=== PATIENT | female | born 1955 | race Caucasian/White ===

== ENCOUNTER 2020-10-04 11:32 | Outpatient (REF) | payer SELFPAY ==
--- NOTE | ~2020-10-04 | MM_ITS ---
EXAMINATION: MM SCREENING DIGITAL BREAST TOMOSYNTHESIS, BILATERAL CLINICAL INFORMATION: Screening. Asymptomatic. The lifetime risk of breast cancer based on the Tyrer-Cuzick Model is 4%. COMPARISON: Mammography: 03/25/2019, 02/07/2018, 08/30/2016, 06/10/2015, 04/01/2014 TECHNIQUE: Digital breast tomosynthesis is performed in both the craniocaudal and mediolateral oblique views along with computer-aided detection (CAD). Synthesized 2D images are generated from the tomosynthesis. FINDINGS: There are scattered areas of fibroglandular density (ACR BI-RADS breast composition Category b). There are no significant masses, abnormal calcifications, or other abnormalities. Parenchymal pattern is similar to prior studies. Low bilateral axillary tail nodes stable. Vascular calcifications again seen. Skin contours are smooth. No significant changes. MM/MM tomosynthesis screening BI IMPRESSION: No significant changes from prior studies. ASSESSMENT: BI-RADS 2: Benign RECOMMENDATION: Routine annual mammography screening. This patient's information was entered into a reminder system with a target due date for their next mammogram.
== END 2020-10-04 11:33 | disposition home or self-care (01) ==
LOC: HO.MAMMO 11:32
PROVIDERS: PCP Nurse Practitioner Family; Visit Provider Nurse Practitioner Family
DX: Z12.31 Encounter for screening mammogram for malignant neoplasm of breast (principal)
CPT/HCPCS: 77063; 77067

== ENCOUNTER 2021-01-07 16:44 | Emergency (ER) | payer OTHER, SELFPAY ==
[2021-01-07 17:57] VITALS: BP 132/65; PULSE 65; RESP 12; TEMP 37; O2SAT 98; BMI 26.5
--- NOTE | 2021-01-07 18:38 | ED_ITS ---
HPI - Skin/Abscess/Foreign Bdy General Chief complaint: General Medical Stated complaint: rash Time Seen by Provider: 01/07/21 18:32 Source: patient Mode of arrival: ambulatory Limitations: language barrier (Maltese-speaking) History of Present Illness MD complaint: rash Onset (ago): day(s) (Nine days) Location: LUE, RUE, L hand, R hand, LLE, RLE, L foot and R foot Severity: moderate Quality: pruritic and other (Pins and needles) Pain Consistency: constant Relieving factors: none Exacerbating factors: other (Nighttime) Context: other (Had COVID vaccine and developed a rash after the 2nd dose and also started metformin on 12/20/2020) Associated symptoms: denies other symptoms Treatments prior to arrival: OTC topical medication (Hydrocortisone) Related Data Previous Rx's Medication Instructions Recorded diphenhydramine HCl [Benadryl 50 mg PO TID PRN #10 tab 01/07/21 Allergy] permethrin 1 appl TOPICAL Q14D #60 g 01/07/21 Allergies Allergy/AdvReac Type Severity Reaction Status Date / Time No Known Allergies Allergy Unverified 04/22/20 17:05 Review of Systems Review of Systems: Constitutional : No Fever, No Chills , no body aches, no recent illness Head/Face: No facial swelling, No facial redness ENT/Mouth : No oral/throat swelling, No Hoarseness, No Swallowing Difficulty Eyes: No Eye Pain, No Swelling, No Redness Cardiovascular : No Chest Pain, No SOB, No palpitations Respiratory : No Cough, No Sputum, No Wheezing, No Smoke Exposure, No Dyspnea Gastrointestinal : No Nausea, No Vomiting, No Diarrhea, No abdominal Pain Genitourinary : No Dysuria, No Urinary Frequency, No Hematuria Musculoskeletal : No joint pain, No Myalgias, No Joint Swelling Skin : No Skin Lesions, positive rash Neuro : No Weakness, No Numbness, No Headache, No dizziness, No tingling Psych : No Anxiety/Panic, No Depression Heme/Lymph: No Bruising, No Lymphadenopathy Endocrine : No Polyuria, No Polydipsia Denies changes in lotions or detergents. Denies drainage from rash. Denies any recent sick contacts or recent travel. Admits to COVID vaccine and metformin that is new on 12/20/2020 otherwise no other new medications or changes in medications PMFSH Past Medical History Attestation statement: The following information was validated with the patient. Medical History Pre-diabetes Social History Social History Advance Directives: No Advance Directives Information Provided: No Physical Exam Vital Signs: Vital Signs: Last Vital Signs Temp 98.6 F 01/07/21 17:57 Pulse 65 01/07/21 17:57 Resp 12 01/07/21 17:57 BP 132/65 01/07/21 17:57 Pulse Ox 98 01/07/21 17:57 Body Mass Index 26.5 vital signs have been reviewed as normal and appeared to be correct. Blood pressure normal. Heart rate normal. Respiration rate normal. Temperature normal. Oxygen saturation normal. Appearance: Alert. Oriented X3. No acute distress. Head: Normal external exam. Normocephalic. Eyes: PERRLA. EOMI. Conjunctiva and sclera normal. Eyelids normal. ENT: Pharynx normal. Uvula midline. Moist mucous membranes. No trismus noted. No drooling noted. No muffled voice noted. Neck: Normal inspection. Neck supple. FROM. No adenopathy. No meningeal signs. CVS: Normal heart rate and rhythm. Heart sound normal. No murmurs noted. Pulses normal throughout. Respiratory: No respiratory distress. Painless inspiration. Breath sounds normal. No wheezes/rales/rhonchi noted. Chest nontender. No accessory muscle usage noted or decreased air movement noted. Back: Full range of motion noted. Skin: Skin warm and dry. Normal skin color. Normal skin turgor. To hands dorsal aspect mainly at the web spaces patient has pruritic macular papular lesions with burrows going up bilateral upper extremities and to lower extremities as well. No lesions/lacerations noted. Extremities: Extremities exhibit normal range of motion. Extremities nontender. Neuro: Oriented X 3. No motor deficit. No sensory deficit. Reflexes normal. Normal steady gait. Course Course Course Narrative: 65-year-old female with rash to bilateral hands going up to the bilateral arms along with bilateral feet going up to bilateral legs that started at the web spaces x9 days. She reports she had the COVID vaccine and after the 2nd toe she believes she developed a rash. Also started on metformin on 12/20/2020 denies any other new medications or changes in medication any lotions perfumes or any other new sources. Reports that no one at the home has similar rash. Reports no visitors and she has not been going out much. On exam patient appears to have scabies. Will DC home with treatment instructions to return if any new or worsening symptoms to follow up with primary care provider. Patient understands agrees with this plan. MDM - Skin/Abscess/Foreign Bdy Medical Records Attestation: I reviewed the patient's medical records. Discharge Plan Discharge Clinical Impression: Scabies Patient Disposition: Home, Self-Care Instructions: Scabies (ED) Prescriptions: New permethrin 5 % cream 1 appl topical Q14D Qty: 60 RF: 2 diphenhydramine HCl [Benadryl Allergy] 25 mg tablet 50 mg PO TID PRN (Reason: itching) Qty: 10 RF: 0 Referrals: [facility] [Primary Care Provider] - 2 days Print Language: Maltese
== END 2021-01-07 19:09 | disposition home or self-care (01) ==
PROVIDERS: Emergency Provider Emergency Medicine
DX: B86 Scabies (principal); R73.03 Prediabetes
CPT/HCPCS: 99283

== ENCOUNTER 2022-04-17 12:10 | Outpatient (REF) | payer OTHER, SELFPAY ==
--- NOTE | ~2022-04-17 | XR_ITS ---
EXAMINATION: XR thoracic spine 3V CLINICAL INFORMATION: Reason for Exam DORSALGIA COMPARISON: None TECHNIQUE: 3 views of the thoracic spine FINDINGS: Vertebral body heights are maintained. Alignment is maintained. Mild multilevel degenerative disc disease with multilevel loss of disc space height. Paravertebral soft tissues are unremarkable. XR/XR thoracic spine 3V IMPRESSION: Mild multilevel degenerative disc disease.
--- NOTE | ~2022-04-17 | XR_ITS ---
EXAMINATION: XR lumbar spine 4V min CLINICAL INFORMATION: Reason for Exam LOW BACK PAIN COMPARISON: None TECHNIQUE: 5 views of the lumbar spine FINDINGS: 5 nonrib-bearing lumbar-type vertebral bodies. Vertebral body heights are maintained. Alignment is maintained. Lucency over the right L3 pars, unclear if this could reflect a pars defect or overlying bowel gas. Mild degenerative changes at L5-S1 with borderline loss of disc space height and facet arthropathy. Paravertebral soft tissues are unremarkable. XR/XR lumbar spine 4V min IMPRESSION: * Mild spondylosis of the lumbar spine, as above detailed. * Lucency over the right L3 pars, unclear if this could reflect a pars defect or overlying bowel gas. CT lumbar spine could be confirmatory if warranted clinically.
== END 2022-04-17 12:11 | disposition home or self-care (01) ==
LOC: HO.XRAY 12:10
PROVIDERS: Absent Provider Registered Nurse; PCP Registered Nurse; Visit Provider Emergency Medicine
DX: M54.50 Low back pain, unspecified (principal); M54.9 Dorsalgia, unspecified
CPT/HCPCS: 72072; 72110

== ENCOUNTER 2022-09-07 11:49 | Emergency (ER) | payer OTHER, SELFPAY ==
--- NOTE | ~2022-09-07 | XR_ITS ---
EXAMINATION: XR CHEST CLINICAL INFORMATION: Cough and fever COMPARISON: 12/12/2016 TECHNIQUE: 2 views of the chest were obtained. FINDINGS: No significant abnormality is noted involving the heart, lungs, mediastinum, bony thorax or soft tissues. XR/XR chest 2V IMPRESSION: Unremarkable examination.
--- NOTE | 2022-09-07 12:47 | ED_ITS ---
HPI - Fever General Chief Complaint: Upper Respiratory Symptoms <LEESA Humphreys Last Filed: 09/07/22 12:49> Stated Complaint: Fever <LEESA Humphreys Last Filed: 09/07/22 12:49> Time Seen by Provider: 09/07/22 14:19 <LEESA Humphreys Last Filed: 09/07/22 12:49> History of Present Illness HPI Narrative: patient complains of feeling warm and possibly feverish for the last several days, she has had a stuffy nose and a cough productive of sputum and the cough is worse neck, no chest pain no shortness of breath, she did have some nausea earlier but today she is not nauseous or vomiting no diarrhea no dysuria no sore throat no difficulty swallowing no difficulty breathing She does not have much appetite but has been able to drink liquids <LEESA Maza Last Filed: 09/20/22 11:57> Related Data Home Medications: Previous Rx's Medication Instructions Recorded diphenhydramine HCl 25 mg tablet 50 mg PO TID PRN itching #10 tabs 01/07/21 (Benadryl Allergy) permethrin 5 % topical cream 1 appl topical Q14D scabies 2 01/07/21 doses #60 grams doxycycline hyclate 100 mg tablet 100 mg PO BID 5 days #10 tabs 09/07/22 <LEESA Humphreys Last Filed: 09/07/22 12:49> Allergies/Adverse Reactions: Allergies Allergy/AdvReac Type Severity Reaction Status Date / Time No Known Allergies Allergy Unverified 04/22/20 17:05 <LEESA Humphreys Last Filed: 09/07/22 12:49> [facility] Past Medical History Source: nursing notes reviewed <LEESA Maza - Last Filed: 09/20/22 11:57> Medical History: Medical History Pre-diabetes <LEESA Humphreys Last Filed: 09/07/22 12:49> Social History Social History: Social History Advance Directives: No <LEESA Humphreys Last Filed: 09/07/22 12:49> Physical Exam Vital Signs: Vital Signs: Last Vital Signs Temp 98.6 F 09/07/22 14:37 Pulse 70 09/07/22 14:37 Resp 18 09/07/22 14:37 BP 134/63 09/07/22 14:37 Pulse Ox 98 09/07/22 14:37 O2 Del Method 09/07/22 14:37 BMI result Body Mass Index 27.0 <LEESA Humphreys - Last Filed: 09/07/22 12:49> Vital Signs: Last Vital Signs Temp 98.6 F 09/07/22 14:37 Pulse 70 09/07/22 14:37 Resp 18 09/07/22 14:37 BP 134/63 09/07/22 14:37 Pulse Ox 98 09/07/22 14:37 O2 Del Method 09/07/22 14:37 BMI result Body Mass Index 27.0 <LEESA Maza - Last Filed: 09/20/22 11:57> Vital Signs: Last Vital Signs Temp 98.6 F 09/07/22 14:37 Pulse 70 09/07/22 14:37 Resp 18 09/07/22 14:37 BP 134/63 09/07/22 14:37 Pulse Ox 98 09/07/22 14:37 O2 Del Method 09/07/22 14:37 BMI result Body Mass Index 27.0 <Primitivo Hyde MD - Last Filed: 09/21/22 16:10> General appearance is no acute distress The eyes no redness no discharge anicteric no pallor The nose no congestion or sinus tenderness The pharynx is clear no redness swelling or exudate, mucous membranes moist Neck is supple Chest clear to auscultation with full symmetric equal breath sounds Heart no murmur Abdomen soft nontender Extremities full range of motion x4 no edema Skin no rash <LEESA Maza - Last Filed: 09/20/22 11:57> Course Course Course Narrative: RME - 67 yo Yi speaking female presenting to the ER for evaluation of intermittent subjective fevers, chills, and bone pain for the last 5 days. +Cough, +SOB, +nausea, +sore throat. No known sick contacts Nontoxic appearing, VSS. Will get CXR and viral PCR. <LEESA Humphreys - Last Filed: 09/07/22 12:49> RME - 67 yo Yi speaking female presenting to the ER for evaluation of intermittent subjective fevers, chills, and bone pain for the last 5 days. +Cough, +SOB, +nausea, +sore throat. No known sick contacts Nontoxic appearing, VSS. Will get CXR and viral PCR. Chest x-ray was normal, viral testing was negative for flu or COVID Physical exam was normal, well-appearing patient with worsening cough and fever is prescribed doxycycline antibiotic for 5 days for bronchitis and is discharged She is tolerating p.o. and is not nauseous or vomiting today <LEESA Maza - Last Filed: 09/20/22 11:57> Medical Decision Making Lab Data Labs: Lab Results 09/07/22 09/07/22 Range/Units 14:05 14:05 Influenza Type A (PCR) NEGATIVE (Negative) Influenza Type B (PCR) NEGATIVE (Negative) RSV RNA Qual (PCR) NEGATIVE (Negative) SARS-CoV-2 RNA (RT-PCR) NEGATIVE (Negative) S. pyogenes GrpA MAN Negative (Negative) <LEESA Humphreys - Last Filed: 09/07/22 12:49> Lab Results 09/07/22 09/07/22 Range/Units 14:05 14:05 Influenza Type A (PCR) NEGATIVE (Negative) Influenza Type B (PCR) NEGATIVE (Negative) RSV RNA Qual (PCR) NEGATIVE (Negative) SARS-CoV-2 RNA (RT-PCR) NEGATIVE (Negative) S. pyogenes GrpA MAN Negative (Negative) <LEESA Maza - Last Filed: 09/20/22 11:57> Lab Results 09/07/22 09/07/22 Range/Units 14:05 14:05 Influenza Type A (PCR) NEGATIVE (Negative) Influenza Type B (PCR) NEGATIVE (Negative) RSV RNA Qual (PCR) NEGATIVE (Negative) SARS-CoV-2 RNA (RT-PCR) NEGATIVE (Negative) S. pyogenes GrpA MAN Negative (Negative) <Primitivo Hyde MD - Last Filed: 09/21/22 16:10> Attestation Attending Attestation: I reviewed [employer] ASSESSMENT/PA/Resident note, assessment and plan. I agree with the d ocumentation, assessment and plan unless otherwise stated. <Primitivo Hyde MD - Last Filed: 09/21/22 16:10> Discharge Plan Discharge Clinical Impression: Bronchitis <LEESA Humphreys - Last Filed: 09/07/22 12:49> Patient Disposition: Home, Self-Care <LEESA Humphreys - Last Filed: 09/07/22 12:49> Additional Instructions: COVID test and flu test were negative, chest x-ray was normal We are prescribing doxycycline antibiotic for possible bronchitis Take doxycycline with some food, drink lots of water to swallow the pill Return any time for difficulty breathing vomiting any worse condition or any concerns It is a good idea to repeat the COVID test to confirm that it is negative <LEESA Humphreys - Last Filed: 09/07/22 12:49> Prescriptions: New doxycycline hyclate 100 mg tablet 100 mg PO BID 5 Days Qty: 10 0RF No Action permethrin 5 % cream 1 appl topical Q14D Qty: 60 2RF Rx Instructions: apply second treatment 14 days after first treatment if live lice remain diphenhydramine HCl [Benadryl Allergy] 25 mg tablet 50 mg PO TID PRN (Reason: itching) Qty: 10 0RF <LEESA Humphreys - Last Filed: 09/07/22 12:49> Stand Alone Forms: Work/School Release <LEESA Humphreys - Last Filed: 09/07/22 12:49> Interventions: ED Discharge Assessment Last Done: 09/07/22 15:59 <LEESA Humphreys - Last Filed: 09/07/22 12:49> Discharge Date/Time: 09/07/22 16:00 <LEESA Humphreys - Last Filed: 09/07/22 12:49>
[2022-09-07 12:49] VITALS: BP 153/66; PULSE 87; RESP 18; TEMP 37.2; O2SAT 97; BMI 27.0
[2022-09-07 14:34] LABS: IDNOW Serial# 6674DD1D; Strep A Nucleic Acid Negative (Negative)
[2022-09-07 14:37] VITALS: BP 134/63; PULSE 70; RESP 18; TEMP 37; O2SAT 98
[2022-09-07 14:56] LABS: Influenza A PCR NEGATIVE (Negative); Influenza B PCR NEGATIVE (Negative); Resp Syncy Virus RNA Qual PCR NEGATIVE (Negative); SARS COV2 PCR INHOUSE NEGATIVE (Negative)
== END 2022-09-07 16:00 | disposition home or self-care (01) ==
PROVIDERS: Physician Assistant; Emergency Provider Emergency Medicine
DX: J40 Bronchitis, not specified as acute or chronic (principal); R50.9 Fever, unspecified; Z20.822 Contact with and (suspected) exposure to COVID-19; Z20.828 Contact with and (suspected) exposure to other viral communicable diseases
CPT/HCPCS: 0241U; 36415; 71046; 87651; 99282; 99283

== ENCOUNTER 2022-10-16 19:22 | Emergency (ER) | payer OTHER, SELFPAY ==
--- NOTE | ~2022-10-16 | US_ITS ---
EXAMINATION: US VENOUS ULTRASOUND WITH DOPPLER LOWER EXTREMITY, RIGHT CLINICAL INFORMATION: Pain and swelling. COMPARISON: None TECHNIQUE: Ultrasound of the deep veins is performed from the hip to the calf with compression sonography and color and pulse Doppler assessment. Spectral analysis with color-flow imaging is performed. FINDINGS: There is thrombus visualized within proximal right greater saphenous vein extending to the saphenous femoral junction. The common femoral, superficial femoral, popliteal and posterior tibial veins are patent. There are several noncompressible varicose veins in the right thigh. If the patient's symptoms persist, followup ultrasound in 5 days 7 days might be of value to exclude proximal propagation from a non-visualized calf vein. US/US venous duplex LE RT IMPRESSION: Acute thrombus visualized within the right greater saphenous vein extending superiorly to the saphenous femoral venous junction.
[2022-10-16 19:30] VITALS: BP 136/43; BP 160/82; PULSE 71; PULSE 75; RESP 22; TEMP 37.2; O2SAT 97; O2SAT 99; BMI 26.2
[2022-10-16 20:12] LABS: MANUAL DIFF FLAG NO
[2022-10-16 20:13] LABS: Basophils Percent Auto 0.3 % (0-2); Eosinophils Absolute Auto 0.1 X10*3/uL (0.0-0.4); Eosinophils Percent Auto 2.1 % (0-4); Hematocrit 37.6 % (37.0-47.0); Hemoglobin 11.9 g/dl (12.0-16.0); Imm Gran Abs Auto 0.01 X10*3/uL (0.00-0.03); Imm Gran Pct Auto 0.2 % (0.0-0.4); Lymphocytes Absolute Auto 2.2 X10*3/uL (1.2-4.9); Lymphocytes Percent Auto 34.7 % (20-40); Mean Corpuscular HGB Conc 31.6 g/dl (31.0-35.0); Mean Corpuscular Hemoglobin 26.2 pg (27.0-33.0); Mean Corpuscular Volume 82.8 fL (80.0-98.0); Mean Platelet Volume 11.3 fL (9.4-12.3); Monocytes Absolute Auto 0.6 X10*3/uL (0.1-1.2); Monocytes Percent Auto 9.7 % (2-11); Neutrophils Absolute Auto 3.4 x10*3/uL (2.0-8.3); Platelet Count 247 X10*3/uL (160-400); Red Blood Count 4.54 X10*6/uL (4.20-5.50); White Blood Count 6.3 X10*3/uL (4.8-10.8)
[2022-10-16 20:28] LABS: Alanine Aminotransferase 14 U/L (0-31); Albumin Level 4.1 g/dL (3.5-5.0); Alkaline Phosphatase 87 U/L (39-117); Anion Gap 15 (12-20); Aspartate Amino Transferase 17 U/L (5-31); Bilirubin Total 0.4 mg/dL (0.0-1.0); Blood Urea Nitrogen 13 mg/dL (9-16); Calcium 8.9 mg/dL (8.4-10.2); Carbon Dioxide 27 mmol/L (22-29); Chloride 106 mmol/L (96-108); Creatinine Clr Calc Pharmacy 59.2; Estimated Glomerular Filt Rate > 60; Glucose Random 102 mg/dL (60-115); Potassium 4.6 mmol/L (3.3-5.1); Sodium 143 mmol/L (135-145); Total Protein 7.1 g/dL (6.5-8.0)
--- NOTE | 2022-10-16 20:55 | ED_ITS ---
HPI - Extremity Problem General Chief complaint: Extremity Problem Stated complaint: right upper leg pain for 5 days Time Seen by Provider: 10/16/22 20:43 Source: patient Mode of arrival: ambulatory Limitations: no limitations History of Present Illness HPI Narrative: 67-year-old female presents with right lower extremity pain. The pain started approximately 4 days ago. The pain is severe. The pain does not radiate. Worse with palpation walking. Patient denies any chest pain or shortness of breath. Patient has never had this pain before. Patient described as aching and sharp. She denies any falls or injuries. Related Data Previous Rx's Medication Instructions Recorded diphenhydramine HCl 25 mg tablet 50 mg PO TID PRN itching #10 tabs 01/07/21 (Benadryl Allergy) permethrin 5 % topical cream 1 appl topical Q14D scabies 2 01/07/21 doses #60 grams doxycycline hyclate 100 mg tablet 100 mg PO BID 5 days #10 tabs 09/07/22 rivaroxaban 10 mg tablet (Xarelto) 10 mg PO DAILY #14 tabs 10/16/22 Allergies Allergy/AdvReac Type Severity Reaction Status Date / Time No Known Allergies Allergy Verified 10/16/22 21:10 [facility] Past Medical History Medical History Pre-diabetes Social History Social History Advance Directives: No Advance Directives Information Provided: No Physical Exam Vital Signs: Vital Signs: Last Vital Signs Temp 98.9 F 10/16/22 19:30 Pulse 71 10/16/22 19:30 Resp 22 H 10/16/22 19:30 BP 136/43 L 10/16/22 19:30 Pulse Ox 99 10/16/22 19:30 O2 Del Method 10/16/22 19:30 BMI result Body Mass Index 26.2 GEN: Well developed, no acute distress, alert, oriented HEENT: Normocephalic, atraumatic, normal external ears, nose appears normal, no oropharyngeal edema or exudates Eyes: Normal to appearance Neck: Supple, no lymphadenopathy Respiratory: Talks in complete sentences, no respiratory distress, clear to auscultation bilaterally Cardiovascular: Regular rate and rhythm, no murmurs rubs or gallops Abdomen: Soft, nontender, nondistended, no guarding, no rebound Back: No CVA tenderness Extremities: No clubbing cyanosis or edema, it veins and right upper thigh medial aspect, tender to palpation, redness Neurologic: No focal neurologic deficits, cranial nerves 2-12 intact, strength is 5/5 bilaterally, gait normal Skin: No rash Course Course Course Narrative: 67-year-old female presents with right lower extremity pain. Patient will receive pain medications. I suspect DVT or SVT at this time. I have ordered an ultrasound. Lab test will be ordered. Pain medications be administered. Reevaluation(s) Reevaluation #1: Patient's ultrasound results come in. She has a superficial venous thrombosis. However, given the location and significant symptoms, I have opted to treat the patient with Xarelt and follow-up with the vascular provider. Patient was comfortable with this course. Time: 22:54 Medications Administered Discontinued Medications Generic Name Dose Route Start Last Admin Trade Name Freq PRN Reason Stop Dose Admin Ketorolac Tromethamine 15 mg 10/16/22 20:52 10/16/22 21:05 Ketorolac Tromethamine 15 Mg/Ml Vial IVPUSH 10/16/22 20:53 15 mg ONCE ONE Administration Medical Decision Making Medical Decision Making [facility] Narrative: Patient is nontraumatic right lower extremity pain. On exam there is redness, tenderness to the blood vessels on the upper medial thigh. This could be thrombophlebitis, DVT, superficial venous thrombosis, abscess, cellulitis. Patient will be treated with pain medications. Will also order an ultrasound to rule out DVT. I am Differential Diagnosis Differential Diagnoses: The differential diagnosis associated with the presentation includes (thrombophlebitis, DVT, superficial venous thrombosis, abscess, cellulitis) Superficial venous thrombosis Admission/Observation Consideration of admission/observation: Escalation of care including admission/observation considered Lab Data MDM Lab Attestation statement: I reviewed the patient's lab results. 10/16/22 19:56 10/16/22 19:56 Labs: Lab Results 10/16/22 10/16/22 Range/Units 19:56 19:56 WBC 6.3 (4.8-10.8) X10*3/uL RBC 4.54 (4.20-5.50) X10*6/uL Hgb 11.9 L (12.0-16.0) g/dl Hct 37.6 (37.0-47.0) % MCV 82.8 (80.0-98.0) fL MCH 26.2 L (27.0-33.0) pg MCHC 31.6 (31.0-35.0) g/dl RDW 15.0 (11.0-16.0) % Plt Count 247 (160-400) X10*3/uL MPV 11.3 (9.4-12.3) fL Immature Gran % (Auto) 0.2 (0.0-0.4) % Neut % (Auto) 53.0 (45-73) % Lymph % (Auto) 34.7 (20-40) % [place] % (Auto) 9.7 (2-11) % Eos % (Auto) 2.1 (0-4) % Baso % (Auto) 0.3 (0-2) % Lymph # (Auto) 2.2 (1.2-4.9) X10*3/uL [place] # (Auto) 0.6 (0.1-1.2) X10*3/uL Eos # (Auto) 0.1 (0.0-0.4) X10*3/uL Baso # (Auto) 0.0 (0.0-0.2) X10*3/uL Abs Immat Gran (auto) 0.01 (0.00-0.03) X10*3/uL Absolute Neuts (auto) 3.4 (2.0-8.3) x10*3/uL Absolute Nucleated RBC 0.000 (0.0-0.012) X10*3/uL Nucleated RBC % (auto) 0.0 (0.0-0.2) /100WBC Sodium 143 (135-145) mmol/L Potassium 4.6 (3.3-5.1) mmol/L Chloride 106 (96-108) mmol/L Carbon Dioxide 27 (22-29) mmol/L Anion Gap 15 (12-20) BUN 13 (9-16) mg/dL Creatinine 0.74 (0.5-1.4) mg/dL Estim Creat Clear Calc 59.2 Estimated GFR > 60 Random Glucose 102 (60-115) mg/dL Calcium 8.9 (8.4-10.2) mg/dL Total Bilirubin 0.4 (0.0-1.0) mg/dL AST 17 (5-31) U/L ALT 14 (0-31) U/L Alkaline Phosphatase 87 (39-117) U/L Total Protein 7.1 (6.5-8.0) g/dL Albumin 4.1 (3.5-5.0) g/dL Independent Interpretation I performed an independent interpretation of an: Ultrasound (I reviewed the imaging study. I also reviewed the radiology report agree with their findings.) Radiology Impression Discussion of test interpretation with radiology: I have reviewed the radiologist's reading. (IMPRESSION: Acute thrombus visualized within the right greater saphenous vein extending superiorly to the saphenous femoral venous junction. Dictated By:Abilio García MDSigned By:<Electronically signed by Abilio García MD in OV>10/16/22 [id number]) Tests considered The following testing was considered but not selected: CT scan Prescription Management I considered prescription management with: Pain Medication and Antibiotic Discharge Plan Discharge Clinical Impression: Acute superficial venous thrombosis of right lower extremity Patient Disposition: Home, Self-Care Instructions: Superficial Thrombophlebitis (ED), Deep Vein Thrombosis Preventi on (ED) Additional Instructions: You will be started on blood thinning medications. This increases her risk for bleeding. Simple injuries can have increased risk of bleeding or bruising. Should you hit her head, uses seek attention in the emergency department immediately to check for any internal bleeding. Prescriptions: New Xarelto 10 mg tablet 10 mg PO DAILY Qty: 14 0RF No Action permethrin 5 % cream 1 appl topical Q14D Qty: 60 2RF Rx Instructions: apply second treatment 14 days after first treatment if live lice remain diphenhydramine HCl [Benadryl Allergy] 25 mg tablet 50 mg PO TID PRN (Reason: itching) Qty: 10 0RF doxycycline hyclate 100 mg tablet 100 mg PO BID 5 Days Qty: 10 0RF Referrals: Cortez Lino MD [Physician] - 5 days Print Language: Danish
[2022-10-16] MEDS: Ketorolac Tromethamine 15 MG/ML VIAL IVPUSH (21:05)
[2022-10-16 23:08] VITALS: BP 124/66; PULSE 64; RESP 16; O2SAT 96
--- NOTE | 2022-10-16 23:19 | PC.NURSE ---
PT [id number], reports 7/10 increase upper R leg pain with swelling and bruising x 5 days. Denies any injury/trauma to leg. R upper thigh area bruising noted with some swelling, pain to touch. IV line placed and lab work collected and sent to lab. Meds given as documented. Pt reports effectiveness to pain med given.
== END 2022-10-16 23:24 | disposition home or self-care (01) ==
PROVIDERS: Emergency Provider Emergency Medicine
DX: I82.811 Embolism and thrombosis of superficial veins of right lower extremity (principal); M79.604 Pain in right leg; Z79.899 Other long term (current) drug therapy
CPT/HCPCS: 36415; 80053; 85025; 93971; 96374; 99284; J1885

== ENCOUNTER → 2023-01-09 09:18 | Outpatient (BNVA) | payer OTHER, SELFPAY | PROVIDERS: Visit Provider Surgery Vascular Surgery | DX: I83.11 Varicose veins of right lower extremity with inflammation (principal) | CPT/HCPCS: 99202 ==

== ENCOUNTER 2023-01-22 09:09 | Outpatient (REF) | payer OTHER, SELFPAY ==
--- NOTE | ~2023-01-22 | US_ITS ---
EXAMINATION: US LOWER EXTREMITY VENOUS (REFLUX EXAM), BILATERAL CLINICAL INDICATION: Chronic venous insufficiency with lower extremity varicose veins, pain and right lower extremity inflammation COMPARISON: Ultrasound from 10/16/2022 TECHNIQUE: Color flow triplex imaging and compression Doppler was performed to evaluate both the deep and the superficial systems bilaterally. To evaluate the superficial system, the examination was performed in the upright position. Color-flow Doppler ultrasound and compression ultrasound were utilized. In addition, maneuvers were utilized to demonstrate reflux. FINDINGS: 1. DEEP VENOUS ULTRASOUND OF THE RIGHT LOWER EXTREMITY: Common Femoral Vein: Compressible, normal respiratory variation and augmented flow. Femoral Vein: Compressible, normal color flow and augmentation. Popliteal Vein: Compressible, normal augmentation. Deep Reflux: There is no evidence of reflux in the deep system in either the common femoral vein or the popliteal vein. There is no evidence of a Parikh's cyst. 2. SUPERFICIAL ULTRASOUND WITH DOPPLER OF RIGHT LOWER EXTREMITY: GREAT SAPHENOUS VEIN: Saphenofemoral Junction: 0.6 cm; Reflux: 0 ms Proximal Thigh: 0.3 cm; Reflux: 0 ms Mid Thigh: 0.2 cm; Reflux: 2460 ms Above Knee: 0.2 cm; Reflux: 0 ms At Knee: 0.1 cm; Reflux: 2248 ms Below Knee: 0.2 cm; Reflux: 2560 ms Mid Calf: 0.1 cm; Reflux: 508 ms Ankle: 0.2 cm; Reflux: 0 ms DUPLICATED MEDIAL GREAT SAPHENOUS VEIN: Diameter: None imaged Reflux: NA DUPLICATED LATERAL GREAT SAPHENOUS VEIN: Diameter: 0.7 cm Reflux: 2364 ms SMALL SAPHENOUS VEIN: Proximal: 0.2 cm; Reflux: 0 ms Distal: 0.2 cm; Reflux: 0 ms VEIN OF GIACOMINI: Size: NA Reflux: NA PERFORATORS: Location: None imaged Size: NA Reflux: NA VARICOSITIES: Location: Mid thigh off the lateral duplicated great saphenous vein which demonstrates underlying thrombosis Size: 0.6 cm Reflux: NA VARICOSITIES: Location: Mid thigh off the lateral duplicated great saphenous vein which demonstrates underlying thrombosis Size: 0.6 cm Reflux: NA VARICOSITIES: Location: Distal, lateral thigh extending into the calf arising from the lateral duplicated great saphenous vein which are patent Size: 0.3-0.6 cm Reflux: Ranging from 1348 ms to 2448 ms 3. DEEP VENOUS ULTRASOUND OF THE LEFT LOWER EXTREMITY: Common Femoral Vein: Compressible, normal respiratory variation and augmented flow. Femoral Vein: Compressible, normal color flow and augmentation. Popliteal Vein: Compressible, normal augmentation. Deep Reflux: There is no evidence of reflux in the deep system in either the common femoral vein or the popliteal vein. There is no evidence of a Parikh's cyst. 4. SUPERFICIAL ULTRASOUND WITH DOPPLER OF LEFT LOWER EXTREMITY: GREAT SAPHENOUS VEIN: Saphenofemoral Junction: 0.4 cm; Reflux: 2280 ms Proximal Thigh: 0.4 cm; Reflux: 0 ms Mid Thigh: 0.2 cm; Reflux: 0 ms Above Knee: 0.2 cm; Reflux: 0 ms At Knee: 0.2 cm; Reflux: 0 ms Below Knee: 0.2 cm; Reflux: 2448 ms Mid Calf: 0.2 cm; Reflux: 0 ms Ankle: 0.1 cm; Reflux: 324 ms DUPLICATED MEDIAL GREAT SAPHENOUS VEIN: Diameter: None imaged Reflux: NA DUPLICATED LATERAL GREAT SAPHENOUS VEIN: Diameter: 0.2 cm Reflux: None SMALL SAPHENOUS VEIN: Proximal: Not visualized Distal: Not visualized VEIN OF GIACOMINI: Size: NA Reflux: NA PERFORATORS: Location: None significant Size: NA Reflux: NA VARICOSITIES: Location: None significant Size: NA Reflux: NA US/US venous duplex LE BI IMPRESSION: Right: Dilated lateral duplicated great saphenous vein with severe reflux extending into multiple varicosities within the right thigh and calf. Some of the varicosities are thrombosed consistent with underlying thrombophlebitis. The extent of the thrombophlebitis has decreased compared to the prior exam. There are segmental areas of severe reflux in the main great saphenous vein which is otherwise normal in caliber as described above. Left: Reflux is seen in the left great saphenous vein at the saphenofemoral junction and proximal calf. No significant varicose veins seen
== END 2023-01-22 09:10 | disposition home or self-care (01) ==
LOC: HO.US 09:09
PROVIDERS: Visit Provider Surgery Vascular Surgery
DX: I83.11 Varicose veins of right lower extremity with inflammation (principal)
CPT/HCPCS: 93970

== ENCOUNTER 2023-03-22 15:00 | Outpatient (AMB) | payer OTHER, SELFPAY ==
--- NOTE | 2023-03-22 15:02 | A.OFFVIS_ITS ---
Intake Intake Visit Reasons: follow up s/p 01/22/23 Intake Note: Patient is here for a follow up after 01/22/23, patient stated right leg is worse Allergies No Known Allergies Allergy (Verified 03/22/23 15:03) HPI follow up s/p 01/22/23 HPI Details Very pleasant 68-year-old female presents for follow-up regarding varicose veins. She actually had a bout of superficial phlebitis on the right lower extremity dating back to October. At that time she had an ultrasound which was negative for DVT. She reports that this is resolving but her varicosities continue to be a source of issues. She now presents for follow-up with venous insufficiency testing. [facility] Medical History Pre-diabetes Social History Alcohol intake: never Patient Tobacco Use Status: Never used Tobacco Review of Systems Const Reports as per HPI ENT Reports no additional complaints Card Denies chest pain, Denies chest pain at rest and Denies chest pain with activity Resp Denies chest congestion and Denies cough GI Reports no additional complaints Musc Details: pain over varicosities, aching of lower extremities, swelling, cramping, heaviness and tiredness, itching Denies abnormal gait Skin/Breast Reports pruritus and Denies wounds Neuro Reports no additional complaints and Denies abnormal gait Psych Denies no additional complaints Physical Exam Const General: cooperative, healthy appearing and comfortable Orientation/consciousness: oriented to person, oriented to place and oriented to time Neck Carotids: no bruits Chest Chest palpation & inspection: normal inspection of the chest and normal palpation of entire chest wall Resp Effort & Inspection: normal respiratory effort and able to speak in complete sentences Cardio Rate: regular rate Heart sounds: S1 normal heart sound present and S2 normal heart sound present Peripheral pulses: Peripheral pulses 2+ throughout GI Inspection: Yes normal to inspection Skin Other: +2 edema, large rope-like varicosities greater than 4 mm right lateral thigh and calf CEAP Classification C4 - skin color changes Ep - Etiology Primary As - superficial veins P - reflux General skin exam: dry skin Neuro General: oriented to person, oriented to place and oriented to time Extrem Right lower extremity: full ROM, normal capillary refill and edema Left lower extremity: full ROM, normal capillary refill and edema Psych Mental Status: mental status grossly normal Results Reviewed Results Reviewed: Brief summary of venous insufficiency testing is as follows: right great saphenous vein: Positive right small saphenous vein: Present and positive right accessory vein: none present left great saphenous vein: Positive left small saphenous vein: negative left accessory vein: none present Please note there is no evidence of any venous aneurysms or significant tortuosity Assessment & Plan Assessment & Plan (1) Varicose veins of right lower extremity with inflammation: Code(s): I83.11 - Varicose veins of right lower extremity with inflammation Plan: This patient has varicose veins with inflammation. They continue to be a source of discomfort for the patient. The patient has tried conservative treatment with compression, leg elevation and exercise program for over 3 months time. They have been compliant with all treatment. This has provided minimal relief for the patient. I do not anticipate this course of treatment will alter the underlying etiology. The patient has been scheduled for lower extremity venous treatment inclusive of --- right great saphenous vein radiofrequency ablation. Risks, benefits, and complications of this procedure has been discussed in detail with the patient including but not limited to bleeding, infection, and the development of a DVT. The patient has demonstrated a clear understanding and has consented. We will schedule the patient as soon as possible. Thank you for allowing us to participate in this patient's care. If there are any questions or concerns please do not hesitate to contact us. Coding Level of Care Code Est Pt Level 4 (36824) Diagnoses Varicose veins of right lower extremity with inflammation I83.11
== END 2023-03-22 15:15 | disposition home or self-care (01) ==
PROVIDERS: Visit Provider Surgery Vascular Surgery
DX: I83.11 Varicose veins of right lower extremity with inflammation (principal)
CPT/HCPCS: 99214

== ENCOUNTER → 2023-03-22 15:00 | Outpatient (BNVA) | payer OTHER, SELFPAY | PROVIDERS: Visit Provider Surgery Vascular Surgery | DX: I83.11 Varicose veins of right lower extremity with inflammation (principal) | CPT/HCPCS: 99212 ==

== ENCOUNTER 2023-04-20 07:40 | Outpatient (AMB) | payer OTHER, SELFPAY ==
[2023-04-20 07:46] VITALS: BMI 26.3
--- NOTE | 2023-04-20 07:46 | MHC.OFFVIS ---
Intake Vital Signs 04/20/23 07:46 Height 4 ft 11 in Weight 130 lb BMI 26.3 Intake Visit Reasons: Right GSV RFA Accompanied by: Self / Same As Patient Allergies No Known Allergies Allergy (Verified 04/20/23 07:47) [facility] Medical History Pre-diabetes Social History Alcohol intake: never Patient Tobacco Use Status: Never used Tobacco Physical Exam Vital Signs: BMI result Body Mass Index 26.3 Office Procedures Vascular Office Procedure Details Details: Diagnosis: Varicose veins with inflammation of right leg Procedure: Endovenous radiofrequency ablation of the right great saphenous vein(s) of the lower extremity with Venclose RF ablation Anesthesia: Local infiltration 5 cc, Tumescent 200 cc. Estimated Blood Loss: Minimal The patient was transferred to the procedure suite and the insufficient saphenous vein was mapped by ultrasound and diagrammed on the overlying skin. The depth and diameter of the vein(s) to be treated was documented. The varicose tributary veins and suitable access sites were identified and mapped as well. The patient was then positioned supine on the procedure table. The affected limb was prepped and draped in the usual sterile fashion. The RF catheter was placed on the sterile field, flushed and wiped down, prepared, and connected by a sterile cable. The patient was placed in a supine position and local anesthesia was instilled in the skin overlying the access site. A skin incision was made overlying the identified and mapped great saphenous vein entry site. The vein was accessed using ultrasound guidance and the Seldinger technique, a guide wire was introduced through the needle, which was then exchanged over the guide wire for a 6F sheath, which was secured in place. The guide wire was removed and the sheath was flushed. The RF catheter was placed into the vein through the sheath and preferentially, imaging was used to place the catheter tip just inferior to the superficial epigastric vein to preserve normal physiological flow in that vein. Additionally, it was confirmed by ultrasound guidance that the catheter tip was also placed a minimum of 1.5cm distal to the saphenofemoral junction. After the RF catheter position was verified by ultrasound, tumescent anesthesia was infiltrated, under ultrasound guidance, precisely into the perivenous compartment along the entire length of vein from the entry site to the saphenofemoral junction until a halo of fluid was noted around the vein. The patient was appropriately position. After RF catheter position was again confirmed with ultrasound imaging, and under direct external compression along the length of the heating element, RF energy was applied. The vein was segmentally ablated by heating a 10 cm segment and then indexing the catheter forward by 9.5 cm until the treatment length is completed. Device temperature was maintained at 120 plus or minus 5 degrees C with an initial power level of 4W/cm dropping to below 2W/cm for each treatment. Total vein length treated 25 cm Total cycles of RF 4. Repeat ultrasound of the saphenous vein was performed, confirming successful treatment. The catheter and sheath were withdrawn and hemostasis established with direct pressure. After assuring hemostasis, the skin incision over the saphenous vein was closed with a steristip and a compression wrap was applied from the level of the foot to the most proximal level of the thigh. Discharge instructions were given to the patient inclusive of follow-up ultrasound and recommended follow-up with us. 32788 - RF Ablation, subsequent vein All charges added?: Procedure code (CPT) selection complete Coding Level of Care Code Procedure Only CPT Codes Details - Vascular 2: 73254 - RF Ablation, subsequent vein ([id number])
== END 2023-04-20 08:24 | disposition home or self-care (01) ==
PROVIDERS: Visit Provider Surgery Vascular Surgery
DX: I83.11 Varicose veins of right lower extremity with inflammation (principal)
CPT/HCPCS: 36475

== ENCOUNTER → 2023-04-20 07:40 | Outpatient (BNVA) | payer OTHER, SELFPAY | PROVIDERS: Visit Provider Surgery Vascular Surgery | DX: I83.11 Varicose veins of right lower extremity with inflammation (principal) | CPT/HCPCS: 36475 ==

== ENCOUNTER 2023-04-23 13:51 | Outpatient (REF) | payer OTHER, SELFPAY ==
--- NOTE | ~2023-04-23 | US_ITS ---
EXAMINATION: US VENOUS ULTRASOUND WITH DOPPLER LOWER EXTREMITY, RIGHT CLINICAL INFORMATION: Evaluate for DVT status post right GSV RFA COMPARISON: 01/22/2023 TECHNIQUE: Ultrasound of the deep veins is performed from the hip to the calf with compression sonography and color and pulse Doppler assessment. Spectral analysis with color-flow imaging is performed. FINDINGS: There is normal venous compression and respiratory variation and augmented flow. The visualized common femoral vein, superficial femoral vein, profunda femoral vein, popliteal vein, and the trifurcation region shows no evidence of deep venous thrombosis. There is no significant popliteal fossa cyst. The GSV is closed up to 3.2 cm from the saphenofemoral junction. US/US venous duplex LE RT IMPRESSION: No DVT demonstrated in the right lower extremity.
== END 2023-04-23 13:52 | disposition home or self-care (01) ==
LOC: HO.US 13:51
PROVIDERS: Visit Provider Surgery Vascular Surgery
DX: M79.604 Pain in right leg (principal)
CPT/HCPCS: 93971

== ENCOUNTER 2023-05-03 09:08 | Outpatient (AMB) | payer OTHER, SELFPAY ==
--- NOTE | 2023-05-03 09:15 | A.OFFVIS_ITS ---
Intake Intake Visit Reasons: 2wk post R GSV RFA 04/20/23 Intake Note: Pt here for a s/p Us 01/22/23 She say sh is having pain in both legs no swelling or redness. She is using compression stockings and feels they are helping Allergies No Known Allergies Allergy (Verified 05/03/23 09:17) HPI 2wk post R GSV RFA 04/20/23 HPI Details Very pleasant 68-year-old female presents for follow-up status post right great saphenous vein radiofrequency ablation. Appears to be doing relatively well. Notes that the pain and discomfort have decreased. Swelling has decreased in general. Now for postprocedure follow-up. Of note postprocedure ultrasound was negative for DVT. [facility] Medical History Pre-diabetes Social History Alcohol intake: never Patient Tobacco Use Status: Never used Tobacco Review of Systems Const All systems reviewed & are unremarkable except as noted in HPI and below Reports no additional complaints ENT Reports Normal hearing present Card Denies chest pain, Denies chest pain at rest, Denies chest pain with activity and Denies pedal edema Resp Denies cough GI Denies abdominal pain Musc Denies abnormal gait, Denies muscle cramps and Denies radiating pain into limb Skin/Breast Denies skin ulcer and Denies wounds Neuro Reports Normal hearing present and Denies abnormal gait Psych Reports no additional complaints Physical Exam Const General: cooperative, healthy appearing and comfortable Orientation/consciousness: oriented to person, oriented to place and oriented to time HEENT Head: Yes normal to inspection Neck Neck: Yes normal visual inspection Carotids: no bruits Chest Chest palpation & inspection: normal inspection of the chest Resp Effort & Inspection: normal respiratory effort and able to speak in complete sentences Auscultation: clear to auscultation bilaterally, no crackles, no rales, no rhonchi and no wheezes Cardio Rate: regular rate Rhythm: regular rhythm Heart sounds: S1 normal heart sound present and S2 normal heart sound present Bruits: no carotid bruits Peripheral pulses: Peripheral pulses 2+ throughout GI Inspection: Yes normal to inspection Skin Wounds: no wounds Hair: normal Neuro General: oriented to person, oriented to place and oriented to time Cranial nerves: Yes CN's II-XII intact bilaterally and Yes Normal hearing pre sent Cognition (Neuro): normal cognition Motor exam (neuro): 5/5 motor strength present throughout Extrem Other: venous exam: No significant superficial varicosities or spider telangiectasias, minimal edema General: No clubbing, No cyanosis and No edema Psych Appearance: grossly normal Mental Status: mental status grossly normal Speech and movement: Normal speech and movement present Assessment & Plan Assessment & Plan (1) Varicose veins of right lower extremity with inflammation: Comment: 04/20/2023 - right great saphenous vein radiofrequency ablation Code(s): I83.11 - Varicose veins of right lower extremity with inflammation Plan: The patient has done extremely well with all venous treatments. Patient's may often experience postprocedure phlebitic episodes and I have discussed with the patient use of warm compresses and NSAIDS if tolerated for pain discomfort. In addition, I have discussed continued conservative measures including use of compression, leg elevation, and exercise. The patient was also given an information sheet regarding appropriate use of compression stockings and future purchases. Thank you for allowing us to care for your patient with venous disease. Coding Level of Care Code Est Pt Level 3 (10806) Diagnoses Varicose veins of right lower extremity with inflammation I83.11
== END 2023-05-03 09:43 | disposition home or self-care (01) ==
PROVIDERS: Visit Provider Surgery Vascular Surgery
DX: I83.11 Varicose veins of right lower extremity with inflammation (principal)
CPT/HCPCS: 99213

== ENCOUNTER → 2023-05-03 09:08 | Outpatient (BNVA) | payer OTHER, SELFPAY | PROVIDERS: Visit Provider Surgery Vascular Surgery | DX: I83.11 Varicose veins of right lower extremity with inflammation (principal); Z98.890 Other specified postprocedural states | CPT/HCPCS: 99212 ==

== ENCOUNTER 2023-05-30 10:01 | Outpatient (REF) | payer OTHER, SELFPAY ==
[2023-05-30 12:18] LABS: Estimated Average Glucose 114 mg/dL; Hemoglobin A1c % 5.6 % (<6.0)
[2023-05-30 12:54] LABS: Cholesterol 139 mg/dL (<200); HDL Cholesterol 49 mg/dL (>40); LDL Cholesterol Calculated 70 mg/dL (<100); Triglycerides 102 mg/dL (<150)
== END 2023-05-30 10:02 | disposition home or self-care (01) ==
LOC: HO.HHCL 10:01
PROVIDERS: Visit Provider Registered Nurse
DX: E78.49 Other hyperlipidemia (principal); R73.03 Prediabetes
CPT/HCPCS: 36415; 80061; 83036

== ENCOUNTER 2024-05-30 13:05 | Outpatient (REF) | payer MEDICARE, SELFPAY ==
--- NOTE | ~2024-05-30 | MM_ITS ---
EXAMINATION: BONE DENSITOMETRY CLINICAL INDICATION: Menopause. COMPARISON: Baseline BD dated 08/18/2010. TECHNIQUE: Using a App in the Air DXA System (software version: 13.1) manufactured by [employer], dual-energy x-ray absorptiometry was performed of the lumbar spine and left hip. The images are of good technical quality. Summary results are attached. FINDINGS: LEFT FEMUR, NECK: Current: BMD 0.787 g/cm2, Z-score -0.2, T-score -1.8, osteopenia. Baseline: BMD 0.871 g/cm2. LEFT FEMUR, TOTAL: Current: BMD 0.860 g/cm2, Z-score 0.1, T-score -1.2, osteopenia, 12.4% decrease from baseline (<5% change is not significant). Baseline: BMD 0.982 g/cm2. AP SPINE L1-L4: Current: BMD 0.780 g/cm2, Z-score -1.7, T-score -3.3, osteoporosis, 14.8% decrease from baseline (<5% change is not significant). Baseline: BMD 0.916 g/cm2. IDENTIFIED RISK FACTORS: Menopause, recurrent falls. HISTORY OF FRACTURE: None listed. MEDICATIONS: Vitamin D. MM/XR DEXA axial skeleton IMPRESSION: 1. DIAGNOSIS: Osteoporosis based on the lowest T-score value of -3.3 in the lumbar spine applying World Health Organization criteria. 2. 10-YEAR FRACTURE RISK PREDICTION, FRAX: According to the guidelines, FRAX calculation should only be performed on patients in the osteopenia bone density category. Therefore, FRAX was not performed on this patient. 3. Treatment Recommendations: NOF guidelines recommend consideration for treatment in postmenopausal women and men age 50 and older presenting with the following: -A hip or vertebral (clinical or morphometric) fracture. -T-score less than or equal to -2.5 at the femoral neck or spine after appropriate evaluation to exclude secondary causes. -Low bone mass at the hip or spine and a 10-year fracture probability by FRAX of greater than or equal to 3% for hip fracture or greater than or equal to 20% for major osteoporotic fracture based on the [place] adapted WHO algorithm. 4. Other Recommendations: All treatment decisions require clinical judgment and consideration of individual patient factors, including patient preferences, comorbidities, previous drug use, risk factors not captured in the FRAX model (e.g. frailty, falls, vitamin D deficiency, increased bone turnover, interval significant decline in bone density) and possible under or overestimation of fracture risk by FRAX. Additional medical evaluation for secondary cause of low bone mineral density may be appropriate. FUTURE SCAN RECOMMENDATION: People with diagnosed cases of osteoporosis or at high risk for fracture should have regular bone mineral density tests. For patients eligible for Medicare, routine testing is allowed once every 2 years. The testing frequency can be increased to one year for patients who have rapidly progressing disease, those who are receiving or discontinuing medical therapy to restore bone mass, or have additional risk factors. Electronically signed by: Caitie Meier MD 06/03/2024 08:18 AM EDT
--- NOTE | ~2024-05-30 | MM_ITS ---
EXAMINATION: MM SCREENING DIGITAL BREAST TOMOSYNTHESIS, BILATERAL CLINICAL INFORMATION: Screening. Asymptomatic. COMPARISON: Mammography: Comparison is made with available priors TECHNIQUE: Digital breast mammography with tomosynthesis is performed in both the craniocaudal and mediolateral oblique views along with computer-aided detection (CAD). FINDINGS: The breasts are heterogeneously dense, which may obscure small masses (ACR BI-RADS breast composition Category c). There are no significant masses, abnormal calcifications, or other abnormalities. MM/MM tomosynthesis screening BI IMPRESSION: No mammographic evidence of malignancy. ASSESSMENT: BI-RADS BI-RADS 1 - Negative RECOMMENDATION: Routine annual mammography screening. 1 year F/U This examination should not preclude the clinical evaluation of a suspicious palpable abnormality. This patient's information was entered into a reminder system with a target due date for their next mammogram. Electronically signed by: Alexus Haddad DO 06/09/2024 08:51 AM MAN
== END 2024-05-30 13:06 | disposition home or self-care (01) ==
LOC: HO.MAMMO 13:05
PROVIDERS: PCP Advanced Practice Midwife; Referring Provider Advanced Practice Midwife; Visit Provider Advanced Practice Midwife
DX: Z12.31 Encounter for screening mammogram for malignant neoplasm of breast (principal); N95.9 Unspecified menopausal and perimenopausal disorder; M81.0 Age-related osteoporosis without current pathological fracture; Z91.81 History of falling
CPT/HCPCS: 77063; 77067; 77080

== ENCOUNTER → 2024-05-30 13:10 | Outpatient (BNV) | payer MEDICARE, SELFPAY | PROVIDERS: PCP Advanced Practice Midwife; Visit Provider Internal Medicine | DX: Z12.31 Encounter for screening mammogram for malignant neoplasm of breast (principal) | CPT/HCPCS: 77063; 77067 ==

== ENCOUNTER 2024-06-02 09:29 | Outpatient (REF) | payer MEDICARE, SELFPAY ==
[2024-06-02 11:05] LABS: MANUAL DIFF FLAG NO
[2024-06-02 11:33] LABS: Basophils Percent Auto 0.4 % (0-2); Eosinophils Absolute Auto 0.1 X10*3/uL (0.0-0.4); Eosinophils Percent Auto 1.5 % (0-4); Hematocrit 37.9 % (37.0-47.0); Hemoglobin 11.9 g/dl (12.0-16.0); Imm Gran Abs Auto 0.01 X10*3/uL (0.00-0.03); Imm Gran Pct Auto 0.2 % (0.0-0.4); Lymphocytes Percent Auto 35.8 % (20-40); Mean Corpuscular HGB Conc 31.4 g/dl (31.0-35.0); Mean Corpuscular Hemoglobin 26.5 pg (27.0-33.0); Mean Corpuscular Volume 84.4 fL (80.0-98.0); Mean Platelet Volume 12.8 fL (9.4-12.3); Monocytes Absolute Auto 0.4 X10*3/uL (0.1-1.2); Neutrophils Percent Auto 55.1 % (45-73); Platelet Count 209 X10*3/uL (160-400); Red Blood Count 4.49 X10*6/uL (4.20-5.50); Red Cell Distribution Width 15.7 % (11.0-16.0); White Blood Count 5.5 X10*3/uL (4.8-10.8)
[2024-06-02 11:46] LABS: Estimated Average Glucose 126 mg/dL; Hemoglobin A1C 126.6987 umol/L; Total Hemoglobin (HGBA1C) 2985.8388 umol/L
[2024-06-02 12:05] LABS: HIV AB/AG Nonreactive (Nonreactive); HIV Num 1 0.06 S/CO (0.00-0.99)
[2024-06-02 12:10] LABS: Alanine Aminotransferase 17 U/L (0-31); Alkaline Phosphatase 78 U/L (39-117); Anion Gap 7 (12-20); Aspartate Amino Transferase 23 U/L (5-31); Bilirubin Total 0.4 mg/dL (0.0-1.0); Blood Urea Nitrogen 12 mg/dL (9-16); Calcium 8.5 mg/dL (8.4-10.2); Carbon Dioxide 24 mmol/L (22-29); Chloride 112 mmol/L (96-108); Cholesterol 155 mg/dL (<200); Estimated Glomerular Filt Rate > 60; Glucose Random 87 mg/dL (60-115); HDL Cholesterol 45 mg/dL (>40); LDL Cholesterol Calculated 86 mg/dL (<100); Potassium 4.1 mmol/L (3.3-5.1); Sodium 139 mmol/L (135-145); Total Protein 6.8 g/dL (6.5-8.0); Triglycerides 124 mg/dL (<150)
[2024-06-02 12:21] LABS: Folate 12.6 ng/mL (> or = 4.0); Vitamin B12 610 pg/mL (200-900)
[2024-06-02 12:30] LABS: TSH reflex Free T4 0.75 uIU/mL (0.32-4.0)
[2024-06-02 13:41] LABS: CT PCR NOT DETECTED (Not Detect.); NG PCR NOT DETECTED (Not Detect.)
[2024-06-04 04:49] LABS: HCV Log PCR <1.18 NOT DETECTED Log IU/mL (NOT DETECTED); HepC Viral Load <15 NOT DETECTED IU/mL (NOT DETECTED)
[2024-06-04 11:58] LABS: RPR Rapid Plasma Reagin NON-REACTIVE (NON-REACTIVE)
== END 2024-06-02 09:30 | disposition home or self-care (01) ==
LOC: HO.HHCL 09:29
PROVIDERS: Visit Provider Registered Nurse
DX: Z00.00 Encounter for general adult medical examination without abnormal findings (principal); Z11.3 Encounter for screening for infections with a predominantly sexual mode of transmission; Z13.1 Encounter for screening for diabetes mellitus
CPT/HCPCS: 36415; 80053; 80061; 82607; 82746; 83036; 84443; 85025; 86592; 87389; 87491; 87522; 87591

== ENCOUNTER 2025-06-12 12:22 | Outpatient (REF) | payer MEDICARE, SELFPAY ==
--- OUTSIDE RECORDS SUMMARY | 2024-09-04 05:00 | XMS_ITS ---
Author Organization [facility] Address [address] [place] [id number] Care Team Providers Care Down Filler Name Role Phone YURY KIM MD Primary Care Provider Manpreet Lynch [phone] REASON FOR VISIT Patient presents today for a screening colonoscopy Encounters Encounter Location Date Provider Diagnosis [facility] [address] [place] [id number] 09/04/2024 Manpreet Kennedy Plan Of Treatment No Information Progress Notes * YANCI POWELLDOB:1954 (70 yo F)Acc No.[id number]:09/04/2024 Progress Notes Patient: YANCI SANDERS Provider: Viridiana Kennedy MD :[id number] A ge:69 Y S ex:Female Date:09/04/2024 Address:[address] [place], [place] [id number] Pcp:YURY KIM MD Subjective: * Chief Complaints: * 1 . Patient presents today for a screening colonoscopy. * Medical History: Objective: * Vitals: Assessment: Plan: * Treatment: * * The named appointment provid er may or may not be the originator of this progress note, and it is not deemed complete until electronically signed by the appointment provider. Sign off status: Pending * Provider: Viridiana Kennedy MD Date: 0 09/04/2024 Generated for Cecilia pena/John/Frieda on: 08/12/2024 02:37 PM EST
--- OUTSIDE RECORDS SUMMARY | 2025-06-12 14:37 | XMS_ITS | Clinical Summary ---
Author Organization [facility] Address [address] [address] Phone Care Team Providers Care Continuity Editor Name Role Phone Ben Javier, LENY, Tasneem Primary Care Provider Akiko haley Allergies No known active allergies Medications acetaminophen (TYLENOL) 500 MG tablet Take 500 mg by mouth every 6 (six) hours as needed for pain (specific location in comments). Active omeprazole (PRILOSEC) 20 MG capsule Take 20 mg by mouth daily. Active meclizine (ANTIVERT) 12.5 mg tablet Take 12.5 mg by mouth 3 (three) times a day as needed. Active fluticasone propion-salmete rol (ADVAIR DISKUS) 100-50 mcg/dose DISKUS Inhale 100 mcg/actuation of fluticasone into the lungs 2 (two) times a day. Active Active Problems No known active problems Social History Tobacco Use Types Packs/Day Years Used Date Smoking Tobacco: Never Smokeless Tobacco: Never Alcohol Use Standard Drinks/Week Comments Never 0 (1 standard drink = 0.6 oz pur e alcohol) Education Answer Date Recorded Are you interested in more education? Not on chuy e 12/01/2022 Are you concerned about learning? Not on file 12/01/2022 No 12/01/2022 No 12/01/2022 Digital Access Answer Date Recorded No 12/30/2022 No 12/30/2022 No 12/30/2022 Reliable internet access at home? Not on file 12/30/2022 Device with a working camera? Not on file Comments Unknown Sex and Gender Information Value Date Recorded Sex Assigned at Female 01/21/2019 3:21 AM EDT Legal Sex Female 9:53 PM EDT Gender Identity Female 01/21/2019 3:21 AM EDT Sexual Orientation Straight 01/21/2019 3: 21 AM EDT Last Filed Vital Signs Vital Sign Reading Time Taken Comments Blood Pressure 132/66 08/18/2019 1:40 PM EST Pulse 64 08/18/2019 1:40 PM EST Temperature 36.9 C (98.5 F) 08/18/2019 1:40 PM EST Respiratory Rate 16 08/18/2019 1:40 PM EST Oxygen Saturation 98% 08/18/2019 1:40 PM EST Inhaled Oxygen Concentration - - Weight 68 kg (150 lb) 08/18/2019 1:40 PM EST Height 152.4 cm (5') 08/18/2019 1:40 PM EST Body Mass Index 29.29 08/18/2019 1:40 PM EST Plan of Treatment Health Maintenance Due Date Last Done Comments Adult Td,Tdap Booster 1957 LIPID PANEL 1957 DEPRESSION SCREENING 1969 HEPATITIS C SCREENING 1975 SMOKING STATUS SCREENING (On ce After 26 Yrs) 1983 MAMMOGRAM 1997 COLOGUARD 2002 COLONOSCOPY 2002 COLORECTAL CANCER SCREENING 2002 FIT TEST 2002 FOBT 2002 SIGMOIDOSCOPY 2002 VIRTUAL COLONOSCOPY 2002 PNEUMOCOCCAL VACCINES (50+ years) (1 of 1 - PCV) 2007 ZOSTER VACCINES (1 of 2) 2007 OSTEOPOROSIS SCREENING INITI AL (ONE-TIME) 2022 INFLUENZA VACCINE (#1) 2025 0, 07/28/2019 COVID-19 VACCINE (2 - 2024-2 6 season) 2025 10/18/2020 RSV VACCINE (1 - 1-dose 75+ series) 2032 HEPATITIS A VACCINES Aged Out No long er eligible based on patient's age to complete this topic HIB VACCINES Aged Out No longer eligi ble based on patient's age to complete this topic MENINGOCOCCAL VACCINES (ACWY) Aged Out No longer eligible based on patient's age to complete this topic MENINGOCOCCAL VACCINES (B) Aged Out N o longer eligible based on patient's age to complete this topic Medical Devices Not on file Insurance [employer] DIRECT [employer] DIRECT [employer] DIRECT DIRECT DIRECT DIRECT PLANS DIRECT PLANS DIRECT PLANS DIRECT Care Teams Continuity Editor Relationship Specialty Start Date End Date Tasneem Contreras NP PCP - General 01/21/19 Additional Source Comments The information contained in this document represents components of the legal health record. It is not the complete legal health record.[facility]
--- OUTSIDE RECORDS SUMMARY | 2025-06-12 14:37 | XMS_ITS | Patient Health Record ---
Author Organization [facility] Address [address] [place] [phone] Care Team Providers Care Workers Compensation Legal Secretary Name Role Phone YURY KIM MD Primary Care Provider Manpreet Lynch [phone] Reason For Referral No Information Encounters Encounter Location Date Provider Diagnosis [facility] [address] [place] [phone] 09/02/2024 Manpreet Kennedy Plan Of Treatment No Information Insurance Providers Payer Name Payer Address Payer Phone Subscriber Number Group Number Insured Name Patient Relationship to Insured Coverage Start Date Coverage End Date MEDIC[employer] OF [employer] [address] [place] [address] [id number] YANCI POWELL Self - patient is the insured
--- OUTSIDE RECORDS SUMMARY | 2025-06-12 14:38 | XMS_ITS | Encounter Summary ---
Author Organization [facility] Address [address] [place] [address] Care Team Providers Care Nutritional Services Cook Name Role Phone Ana Lopez Primary Care Provider [phone] Encounter Details Date Type Department Care Team (Late st Contact Info) Description 08/03/2022 Telephone [facility] [address], [place] [phone] Ana Lopez FNP [address], [place] [phone] Social History Tobacco Use Types Packs/Day Years Used Date Smoking Tobacco: Never Assessed Comments Unknown Sex and Gender Information Value Date Recorded Sex Assigned at Female 06/05/2022 10:17 AM EDT Legal Sex Female 10:17 AM EDT Gender Identity Female 06/05/2022 10:17 AM EDT Sexual Orientation Straight 06/04/2025 2: 24 PM EDT COVID-19 Exposure Response Date Recorded In the last 10 days, have yo u been in contact with someone who was confirmed or suspected to have Coronavirus/COVID-19? No / Unsure 07/17/2022 10:16 AM EST documented as of this encounter Plan of Treatment Upcoming Encounters Date Type Department Care Team (Late st Contact Info) Description 08/05/2025 9:00 AM EST Office Visit [facility] [address] [place] [phone] Ana Lopez FNP [address] [place] [phone] documented as of this encounter Visit Diagnoses Not on filedocumented in this encounter Care Teams Nutritional Services Cook Relationship Specialty Start Date End Date Ana Lopez FNP [address] [place] [address] PCP - General Family Medicine 03/31/22 documented as of this encounter
--- OUTSIDE RECORDS SUMMARY | 2025-06-12 14:38 | XMS_ITS | Clinical Summary ---
Author Organization [employer] Address [address] [facility] [address] [place] [address] Care Team Providers Care Slip Feeder Name Role Phone Ana Lopez REMI Primary Care Provider [phone] Allergies No known active allergies Medications SM Dry Eye Relief 0.2-0.2-1 % solution INSTILL DROPS IN EACH EYE NEEDED FOR DRY INTO THE AFFECTED EYE(S) 05/19/20 22 Active lidocaine (Lidoderm) 5 % patch Place 1 patch on the skin at bed time. 05/19/20 22 Active omeprazole OTC (PriLOSEC OTC) 20 MG EC tablet Take 1 tablet by mouth. 05/19/20 22 Active simethicone (Mylicon) 80 MG chewable tablet Chew 1 tablet in the morning and 1 tablet at noon and 1 tablet in the evening and 1 tablet before bedtime. 10/10/19 22 Active Acetaminophen 500 MG capsuleIndications :Acute nasopharyngitis Take one to two tablets as needed for fever or pain every 6 hours 30 capsule 09/11/19 23 Active Diclofenac Sodium (Voltaren) 1 % gelIndications:Laura tricia osteoarthritis of left knee Use by topical route - apply thin layer over lower extremities as needed for inflammation of the veins. Use 2-3 times per day. 100 g 2 05/30/20 23 Active estradiol (Estrace) 0.1 MG/GM vaginal cream 1g vaginally twice weekly 45 g 1 03/24/20 24 Active topiramate (Topamax) 25 MG tabletIndications: Migraine without status migrainosus, not intractable, unspecified migraine type TAKE 1 TABLET BY MOUTH EVERY DAY FOR HEADACHE 90 tablet 3 04/30/20 24 Active Blood Pressure kitIndications:Heather vated blood pressure reading Use to check blood pressure at home. 1 kit 04/30/20 24 Active hydrocortisone 1 % creamIndications:R spring Apply topically 2 times daily. Use for 1-2 weeks (affected area: right cheek) 15 g 1 04/30/20 24 Active meclizine (Antivert) 12.5 MG tabletIndications: Vertigo Take 1 tablet (12.5 mg) by mouth if needed in the morning, at noon, and at bedtime for dizziness. 30 tablet 3 04/30/20 24 Active cholecalciferol (D3 Super Strength) 50 MCG (2000 UT) capsuleIndications :Vitamin D deficiency Take 1 capsule (50 mcg) by mouth Once per day. 90 capsule 3 04/30/20 24 Active calcium carbonate (Calcium 600) 600 MG tabletIndications: Other osteoporosis without current pathological fracture Take 1 tablet (600 mg) by mouth Once per day. 90 tablet 3 07/23/20 24 025 Active alendronate (Fosamax) 70 MG tabletIndications: Other osteoporosis without current pathological fracture Take 1 tablet (70 mg) by mouth 1 (one) time per week. Take in the morning with a full glass of water, on an empty stomach, and do not take anything else by mouth or lie down for the next 30 min. 12 tablet 3 07/23/20 24 025 Active atorvastatin (Lipitor) 20 MG tabletIndications: Other hyperlipidemia TAKE 1 TABLET BY MOUTH EVERY EVENING BEFORE BEDTIME 90 tablet 1 02/03/20 25 Active metFORMIN XR (Glucophage-XR) 500 MG 24 hr tabletIndications: Prediabetes TAKE 1 TABLET BY MOUTH EVERY EVENING WITH MEALS 90 tablet 1 02/03/20 25 025 Discontin ued(Thera py completed ) Active Problems Problem Noted Date Diagnosed Date Other osteoporosis without current pathological fracture 07/23/2024 Overview (07/24/2024): DEXA May 2024 demonstrated osteoporosis with T-score -3.3 in AP spine view Started on alendronate 70mg weekly on 07/23/24. Reviewed med safety and SE (consider discontinuation after 5 years pending bone scans) Vit D and calcium supplementation Assessment & Plan (06/03/2025 4:58 PM EDT): - Encourage lifestyle intervention such as low-impact weight exercises or body weight exercises 2-3x/week. Non smoker Assessment & Plan (07/24/2024 9:27 AM EST): - Encourage lifestyle intervention such as low-impact weight exercises or body weight exercises 2-3x/week. Non smoker Healthcare maintenance 03/19/2023 Overview (05/15/2024): Pap/results: NILM HPV neg 02/16/21, final pap due on or after 65 y/o Mammogram: last 10/04/20, scheduled 05/30/24 Colorectal Screening: stool card neg Jul 2021, referral to GI placed 04/30/24 (scheduled 09/04/24) DEXA: scheduled 05/30/24 Assessment & Plan (05/15/2024 12:40 PM EDT): Labs ordered today Assessment & Plan (06/21/2023 7:31 PM EST): Vaccines: pneumococcal and influenza vaccines administered today, pt tolerated well Acute superficial venous thr ombosis of lower extremity, right 11/07/2022 Overview (05/01/2024): October 2022: Acute superficial venous thrombosis of right lower extremity US: Acute thrombus visualized within the right greater saphenous vein extending superiorly to the saphenous femoral venous junction Started on Xarelto 10mg daily and referred to Vascular [facility] Vascular consult Apr 2023 - right great saphenous vein radiofrequency ablation. Encouraged continued conservative measures including compression, leg elevation, and exercise. Assessment & Plan (11/10/2022 7:15 PM EDT): -Original referral location does not accept pt insurance, called [facility] Vascular, planning to review case -Referral JOÃO to vascular -Pt reports decrease in size of inflammation, and no longer red or tender -No red flag symptoms such as SOB, difficulty breathing, chest pain, N/V/D -Per UTD guidelines: Intermediate risk for VTE - For patients at intermediate risk for VTE, we suggest prophylactic anticoagulation for 45 days rather than supportive care alone (Grade 2C). Intermediate risk patients include those with SVT in proximity (3 to 5 cm) to the deep venous system, particularly if involving the great or small saphenous vein; SVT that is more extensive with the affected vein segment >=5 cm; SVT that propagates with symptomatic care; and the patient has no medical risk factors for VTE. For prophylaxis, fondaparinux, wtn-hlkkqxxyo-ngjepa heparin, unfractionated heparin, direct oral anticoagulants, and vitamin K antagonists appear to be equally effective. (See 'Dose and duration' above.) -Elevated risk for VTE - For patients at elevated risk for VTE, we suggest therapeutic anticoagulation, rather than prophylactic anticoagulation with a dose and duration like that selected for DVT (Grade 2C). Elevated-risk patients include SVT identified initially or that subsequently propagates within 3 cm of the deep venous system, particularly if involving the great saphenous vein or small saphenous vein; SVT that propagates despite prophylactic anticoagulation; recurrent SVT after cessation of anticoagulation; or SVT in a patient with medical risk factors for VTE (eg, prior DVT, thrombophilia). -30 day prescription of Xarelto sent to pharmacy, plan for extension if needed by specialist -ED precautions reviewed Hearing difficulty of both ears 08/21/2022 Assessment & Plan (06/21/2023 7:29 PM EST): -Re-referral to audiology for further eval Assessment & Plan (08/21/2022 12:54 PM EST): -Reschedule eval with audiology -Call [facility] with any difficulties or if in need of a new referral Vertigo 08/14/2022 Assessment & Plan (08/14/2022 10:03 AM EST): -meclizine PRN Other hyperlipidemia 08/13/2022 Assessment & Plan (06/21/2023 7:28 PM EST): -Continue with atorvastatin 20mg nightly -Last Lipid panel: LDL 130, HDL 47, TG 94, TC 197 in Jul 2021 -Repeat lipid panel ordered today Assessment & Plan (08/21/2022 12:49 PM EST): -Continue with atorvastatin 20mg nightly -Last Lipid panel: LDL 130, HDL 47, TG 94, TC 197 in Jul 2021 -Repeat fasting lipid panel when next in office Primary osteoarthritis of left knee 07/17/2022 Vitamin D deficiency 07/17/2022 Assessment & Plan (08/21/2022 12:53 PM EST): -Continue Vit D 2000units daily -Last Vit D level 24ng/mL in Jul 2021, recheck lab when next in office Lumbar spondylosis 05/21/2022 Assessment & Plan (05/01/2024 9:54 PM EDT): -Continue with symptomatic relief such as rest, light stretching, warm showers, ibuprofen PRN -Continue lidocaine patches PRN, reviewed med safety and use -Declines referral to PT at this time, follow up if interested Assessment & Plan (08/21/2022 12:51 PM EST): -Continue with symptomatic relief such as rest, light stretching, warm showers, ibuprofen PRN -Continue lidocaine patches PRN, reviewed med safety and use -Declines referral to PT at this time, follow up if interested Prediabetes 09/20/2021 Overview (06/03/2025): Lab Results Component Value Date HGBA1C 5.8 (A) 06/03/2025 -Well controlled -Cont lifestyle interventions -Metformin deprescribed 06/03/25 Assessment & Plan (06/03/2025 5:01 PM EDT): -Plan: STOP metformin 500mg daily (pt interested in deprescribing) Assessment & Plan (06/21/2023 7:27 PM EST): Lab Results Component Value Date HGBA1C 5.6 05/30/2023 -Well controlled -Cont lifestyle interventions -Cont metformin 500mg daily (discuss deprescribing if pt interested) Assessment & Plan (11/10/2022 7:16 PM EDT): -Continue with metformin 500mg daily -Continue with lifestyle interventions Lab Results Component Value Date HGBA1C 6.0 11/07/2022 Assessment & Plan (08/21/2022 12:53 PM EST): -A1c 6.0% on 06/02/22 -Continue with metformin 500mg daily -Continue with lifestyle interventions Constipation 07/29/2015 Migraine 07/29/2015 Assessment & Plan (05/15/2024 12:40 PM EDT): -Pt reports improvement in severity of head pain w/ re-start of topiramate, but continues with daily symptoms. Does not desire changes in med or med dose at this time. -Continue topiramate 25mg daily for prevention -Established with [facility] Acupuncture clinic -Pt to follow up with Neurology as needed -Head CT ordered for further eval -ED precautions Assessment & Plan (05/01/2024 9:55 PM EDT): -Pt reports well controlled with current regimen -Continue topiramate 25mg daily for prevention -Reviewed med safety and side effects -Established with [facility] Acupuncture clinic -Pt to follow up with Neurology as needed Assessment & Plan (06/21/2023 7:27 PM EST): -Pt reports well controlled with current regimen -Continue topiramate 25mg daily for prevention -Reviewed med safety and side effects -Established with [facility] Acupuncture clinic -Pt to follow up with Neurology as needed Assessment & Plan (08/21/2022 12:50 PM EST): -Pt reports well controlled with current regimen -Continue topiramate 25mg daily for prevention -Reviewed med safety and side effects -Established with [facility] Acupuncture clinic -Pt to follow up with Neurology as needed Nonulcer dyspepsia 07/29/2015 Assessment & Plan (08/13/2022 7:44 PM EST): -Continue with omeprazole PRN Encounters Date Type Department Care Team Description 06/03/2025 10:00 AM EDT Office Visit [facility] MED[facility]INE [address] [place] [id number] Ana Lopez, REMI Other osteoporosis without current pathological fracture (Primary Dx); Prediabetes; Healthcare maintenance; Encounter for immunization; Abdominal discomfort; Family history of cirrhosis of liver; Loud snoring; Witnessed episode of apnea; Dietary counseling; Exercise counseling 06/03/2025 Travel 06/01/2025 Telephone [facility] [address] [place] [address] Ana Lopez FNP fyi 05/27/2025 Patient Outreach [facility] [address] [place] [address] Ana Lopez FNP Pre-visit Planning (SDOH negative. Tobacco screening negative) from Last 3 Months Immunizations Immunization Administration Dates Next Due Influenza High-dose Quadriva lent Preservative Free 05/30/2023,05/19/2022 Influenza injectable quadriv alent IIV4 with preservative 04/26/2017,06/19/2016,07/29/2015 Influenza injectable quadriv alent preservative free 06/20/2021,06/11/2020,07/28/2019 Influenza, High Dose Seasona l, Preservative Free 06/03/2025,04/30/2024 Influenza, IIV3, injectable 07/07/2014, 1 Influenza, Split (incl. telma fied surface antigen) 06/13/2013,11/08/2012 Pneumococcal Conjugate PCV 20 05/30/2023 TD (adult), 2 Lf tetanus tox oid, preservative free, adsorbed 01/01/2003 Tdap 07/23/2024,01/06/2013 Zoster, Recombinant 03/13/2020 Family History Medical History Relation Name Comments Lung cancer Father Cirrhosis Mother Liver disease Mother renal disease Mother Relation Name Status Comments Father Mother Social History Tobacco Use Types Packs/Day Years Used Date Smoking Tobacco: Never Passive Smoke Exposure: Never Smokeless Tobacco: Never Tobacco Cessation:Counseling Given: Not Answered Alcohol Use Standard Drinks/Week Comments Never 0 (1 standard drink = 0.6 oz pur e alcohol) Depression Answer Date Recorded Patient Health Questionnaire-9 Score 0 07/23/2024 Patient Health Questionnaire-9 Score 0 07/23/2024 Last PHQ-9: Questionnaire Data Not on file 1 09/23/2023 Housing Stability Answer Date Recorded What is your housing situation today? I have amy patten 05/27/[address] you li ve. Do you have problems with any of the following? None of the above 05/27/2025 Food Insecurity Answer Date Recorded Within the past 12 months, y ou worried that your food would run out before you got money to buy more: Never True 05/27/2025 Within the past 12 months,th e food you bought just didn't last and you didn't have enough money to get more: Never True Transportation Answer Date Recorded In the past 12 months, has l ack of transportation kept you from medical appts, meetings, work or from getting things needed for daily living? No 05/27/2025 Utilities Answer Date Recorded In the past 12 months, has t he electric, gas, oil or water company threatened to shut off services in your home? No 05/27/2025 Depression Answer Date Recorded Patient Health Questionnaire-2 Score 0 07/23/2024 Internet Access Answer Date Recorded Internet Access Q1 Yes 05/27/2025 Internet Access Q2 Not on file 05/27/2025 Comments No Sex and Gender Information Value Date Recorded Sex Assigned at Female 06/05/2022 10:17 AM EDT Legal Sex Female 10:17 AM EDT Gender Identity Female 06/05/2022 10:17 AM EDT Sexual Orientation Straight 06/04/2025 2 :24 PM EDT Last Filed Vital Signs Vital Sign Reading Time Taken Comments Blood Pressure 120/72 06/03/2025 10:31 AM EDT Pulse 59 06/03/2025 10:31 AM EDT Temperature 36.1 C (97 F) 06/03/2025 10:31 AM EDT Respiratory Rate 10 06/03/2025 10:31 AM EDT Oxygen Saturation 98% 06/03/2025 10:31 AM EDT Inhaled Oxygen Concentration - - Weight 62.4 kg (137 lb 8 oz) 06/03/2025 10:31 AM EDT Height 147.3 cm (4' 10 ) 06/03/2025 10:31 AM EDT Body Mass Index 28.74 06/03/2025 10:31 AM EDT Plan of Treatment Upcoming Encounters Date Type Department Care Team (Late st Contact Info) Description 08/05/2025 9:00 AM EST Office Visit [facility] MEDICINE [address] [place] [address] Ana Lopez, APPLICATION COUNSELOR [address] [place] [address] Health Maintenance Due Date Last Done Comments CT Colonography 1955 Colonoscopy 1955 Colorectal Cancer Screening 1955 FIT DNA/Cologuard 1955 FIT 1955 FOBT 1955 Sigmoidoscopy 1955 RSV Patients and Patients Aged 60 years or older (1 - Risk 60-74 years 1-dose series) 2017 Zoster Vaccines (2 of 2) 05/08/2020 03/13/2020 COVID-19 Vaccine ( season) 2025 08/12/2021, 11/15/2020, 10/18/2020 Alcohol/Substance Use Screening 07/23/2025 07/23/2024 Depression Screening 07/23/2025 07/23/2024, 07/23/20 24 SDOH Screening 05/27/2026 05/27/2025 Tobacco Screening 05/27/2026 05/27/2025 Mammogram 05/30/2026 05/30/2024, 08/0 04/2019, 02/08/2018 Diabetes: Hemoglobin A1C 06/03/2026 025, 06/02/2024, 05/30/2023, Additional history exists DTaP/Tdap/Td Vaccines (3 - Td or Tdap) 07/23/2034 07/23/2024, 01/06/2013, 01/01/2003 Cervical Cancer Screening Discontinued HPV/Cotest Discontinued 02/22/2021 Pap Smear Discontinued 02/22/2021 Pneumococcal Vaccine: 50+ Years Completed 05/30/2023 Hepatitis C Screening Completed 06/02/2024, 023 Influenza Vaccine Completed 06/03/2025, , 05/30/2023, Additional history exists HIB Vaccines Aged Out No longer eligi ble based on patient's age to complete this topic HPV Vaccines Aged Out No longer eligi ble based on patient's age to complete this topic Hepatitis A Vaccines Aged Out No long er eligible based on patient's age to complete this topic Hepatitis B Vaccines Aged Out No long er eligible based on patient's age to complete this topic IPV Vaccines Aged Out No longer eligi ble based on patient's age to complete this topic Meningococcal B Vaccine Aged Out No l onger eligible based on patient's age to complete this topic Meningococcal Vaccine Aged Out No mayuri gregoria eligible based on patient's age to complete this topic RSV under 20 months Aged Out No longe r eligible based on patient's age to complete this topic Rotavirus Vaccines Aged Out No longer eligible based on patient's age to complete this topic Procedures Procedure Name Priority Date/Time Associated Diagnosis Comments POCT GLYCATED HEMOGLOBIN, TOTAL Routine 06/03/2025 10:35 AM EDT Prediabetes POCT GLUCOSE Routine 06/03/2025 10:32 AM EDT Prediabetes HEPATITIS C VIRAL RNA, QUANTITATIVE, REAL-TIME PCR Routine 06/02/2024 9:32 AM EDT Healthcare maintenance BI MAMMOGRAM SCREENING TOMOSYNTHESIS BILATERAL Routine 05/30/2024 1:10 PM EDT Breast cancer screening by mammogram HPV GENOTYPES 16,18/45 Routine 3:29 AM EDT THINPREP PAP Routine 02/22/2021 3:29 AM EDT from Last 3 Months or Most Recently Relevant to Health Maintenance Results * (ABNORMAL) POCT Hgb A1c (06/03/2025 10:35 AM EDT) Hemoglobin A1C 5.8(A) 4.0 - 5.7 % QC Media Lot # [id number] Lot# Expiration Date [id number] Blood 06/03/2025 10:3 5 AM EDT Ana Lopez APPLICATION COUNSELOR POINT OF CARE TEST ENTER/EDIT ORDERABLES Final Result * POCT Glucose (06/03/2025 10:32 AM EDT) Glucose Blood, POC 100 60 - 200 mg/dL QC Media Lot # [id number] Lot# Expiration Date 3 Blood Capillary blood specimen / Unknown 06/03/2025 10:32 AM EDT Ana Lopez APPLICATION COUNSELOR POINT OF CARE TEST ENTER/EDIT ORDERABLES Final Result * Hepatitis C Viral RNA, Quantitative, Real-Time PCR (06/02/2024 9:32 AM EDT) Hepatitis C Viral Load <15 NOT DETECTED NOT DETECTED IU/mL [facility] HCV Log PCR <1.18 NOT DETECTED NOT DETECTED Log IU/mL [facility] Comment:For additional infor augie, please refer [email or web address].[employer]/faq/GNA23j0(This link is being provided for informational/educational purposes only.)THIS TEST WAS PERFORMED AT:[employer] [place] [phone] OLSON MD Blood 06/02/2024 9:32 AM EDT 06/02/2024 11:05 AM EDT Ana PRETTYP LAB BLOOD ORDERABLES Final Res ult [facility] [address] [place] [address] [phone] * BI Mammogram Screening Tomosynthesis Bilateral (05/30/2024 1:10 PM EDT) Anatomical Region Laterality Modality Breast Bilateral Mammography 05/30/2024 1:10 PM EDT Narrative 06/09/2024 8:54 AM [facility] [address] [place] [address] Mammography Report Signed Patient: Brandi Figueroa MR#: [id number] : 1955 Acct:[id number] Age/Sex: 69 / F ADM Date: 05/30/24 Loc: HO.MAMMO Attending Dr: Dio Jara CNM Ordering Physician: DIO JARA CNM Results: 1 Negative Date of Service: 05/30/24 Follow Up: 1 Year From Orig ina Mammogram Procedure(s): MM tomosynthesis screening BI Accession Number(s): [id number] cc: DIO JARA CNM EXAMINATION: MM SCREENING DIGITAL BREAST TOMOSYNTHESIS, BILATERAL CLINICAL INFORMATION: Screening. Asymptomatic. COMPARISON: Mammography: Comparison is made with available priors TECHNIQUE: Digital breast mammography with tomosynthesis is performed in both the craniocaudal and mediolateral oblique views along with computer-aided detection (CAD). FINDINGS: The breasts are heterogeneously dense, which may obscure small masses (ACR BI-RADS breast composition Category c). There are no significant masses, abnormal calcifications, or other abnormalities. MM/MM tomosynthesis screening BI IMPRESSION: No mammographic evidence of malignancy. ASSESSMENT: BI-RADS BI-RADS 1 - Negative RECOMMENDATION: Routine annual mammography screening. 1 year F/U This examination should not preclude the clinical evaluation of a suspicious palpable abnormality. This patient's information was entered into a reminder system with a target due date for their next mammogram. Electronically signed by: Alexus Haddad DO 06/09/2024 08:51 AM EST Dictated By: Alexus Haddad DO Signed By: <Electronically signed by Alexus Haddad DO in OV> 06/09/24 0851 DD/ 1310 TD/TT: 05/30/24 1330 Fashion Show Director: Procedure Note Donotuseinterpreter, Image - 06/09/2024 [facility] [address] [place], [place] [address] Mammography Report Signed Patient: Brandi FigueroaMR#: [id number] : 1955cct:[id number] Age/Sex: 69 / FADM Date: 05/30/24 Loc: TOI Attending Dr: Dio Jara CNM Ordering Physician: DIO JARAesults: 1 Negative Date of Service: 05/30/24Follow Up: 1 Year From [facility] Mammogram Procedure(s): MM tomosynthesis screening BI Accession Number(s): [id number] cc: DIO JARA CNM EXAMINATION: MM SCREENING DIGITAL BREAST TOMOSYNTHESIS, BILATERAL CLINICAL INFORMATION: Screening. Asymptomatic. COMPARISON: Mammography: Comparison is made with available priors TECHNIQUE: Digital breast mammography with tomosynthesis is performed in both the craniocaudal and mediolateral oblique views along with computer-aided detection (CAD). FINDINGS: The breasts are heterogeneously dense, which may obscure small masses (ACR BI-RADS breast composition Category c). There are no significant masses, abnormal calcifications, or other abnormalities. MM/MM tomosynthesis screening BI IMPRESSION: No mammographic evidence of malignancy. ASSESSMENT: BI-RADS BI-RADS 1 - Negative RECOMMENDATION: Routine annual mammography screening. 1 year F/U This examination should not preclude the clinical evaluation of a suspicious palpable abnormality. This patient's information was entered into a reminder system with a target due date for their next mammogram. Electronically signed by: Alexus Haddad DO 06/09/2024 08:51 AM EST Dictated By: Alexus Haddad DO Signed By: <Electronically signed by Alexus Haddad DO in OV> 06/09/24 0851 DD/ 1310 TD/TT: 05/30/24 1330 Fashion Show Director: Dio Jara CNM [facility] BI PROCEDURES Edited Result - Final * THINPREP PAP (02/22/2021 3:29 AM EDT) Clinical Information: None given [facility] COMMENT SEE COMMENT [facility] Comment: EXPLANATORY NOTE: The Pap is a screening test for cervical cancer. It is not a diagnostic test and is subject to false negative and false positive results. It is most reliable when a satisfactory sample, regularly obtained, is submitted with relevant clinical findings and history, and when the Pap result is evaluated along with historic and current clinical information. Plastics Design Engineer : SEE COMMENT [facility] Comment: KN, CT(ASCP) CT screening location: [facility] [address] Interpretation/R esult: Negative for intraepithelial lesion or malignancy. [facility] LMP: NONE GIVEN [facility] Prev. BX: NONE GIVEN [facility] Prev. PAP: NONE GIVEN [facility] Review Plastics Design Engineer : SEE COMMENT [facility] Comment: CHRIS MYERS(ASCP) CT screening location: [address] [address] SOURCE: None given [facility] Statement Of Adequacy: SEE COMMENT [facility] Comment: Satisfactory for evaluation. Endocervical/transformation zone component present. 02/22/2021 3:29 AM EDT Lorena Parikh NP LAB PATHOLOGY ORDERABLES Final Result Performing Organization Address [facility] Co de Phone Number [facility] [address] * HPV GENOTYPES 16,18/45 (02/22/2021 3:29 AM EDT) HPV 16 RNA NOT DETECTED NOT DETECTED [facility] HPV 18/45 RNA NOT DETECTED NOT DETECTED [facility] Comment: Methodology: Medical Technologist Microbiology Mediated Amplification The analytical performance characteristics of this assay have been determined by [employer]. The modifications have not been cleared or approved by the FDA. This assay has been validated pursuant to the CLIA regulations and is used for clinical purposes. 02/22/2021 3:29 AM EDT Lorena Parikh NP LAB CYTOLOGY ORDERABLES Final R esult Performing Organization Address [facility] Co de Phone Number [facility] [address] from Last 3 Months or Most Recently Relevant to Health Maintenance Insurance [id number] [place] [address] Care Teams Slip Feeder Relationship Specialty Start Date End Date Ana Lopez FNP [address] [place] [id number] PCP - General Family Medicine 03/31/22
== END 2025-06-12 12:23 | disposition home or self-care (01) ==
LOC: HO.MAMMO 12:22
PROVIDERS: PCP Registered Nurse; Visit Provider Advanced Practice Midwife
DX: Z12.31 Encounter for screening mammogram for malignant neoplasm of breast (principal)
CPT/HCPCS: 77063; 77067

== ENCOUNTER → 2025-06-12 13:00 | Outpatient (BNV) | payer MEDICARE, SELFPAY | PROVIDERS: PCP Registered Nurse; Visit Provider Internal Medicine | DX: Z12.31 Encounter for screening mammogram for malignant neoplasm of breast (principal) | CPT/HCPCS: 77063; 77067 ==

== ENCOUNTER 2025-08-05 09:29 | Outpatient (REF) | payer MEDICARE, SELFPAY ==
--- OUTSIDE RECORDS SUMMARY | 2025-08-05 09:00 | XMS_ITS | Encounter Summary ---
Author Organization [employer] Address [address] [facility] [address] [place] [address] Care Team Providers Care Chrome Worker Name Role Phone Ana Lopez Primary Care Provider [phone] Reason for Referral * Consultation (Routine) - Pending Review Specialty Diagnoses / Procedures Referred By Marcial mccoy Referred To Contact Gastroenterology Diagnoses Screening for colon cancer Ana Lopez FNP [address] [place] [address] Phone: tel: fax: Irwin Erickson MD [address] [place] [phone] Phone: tel: Referral ID Status Reason Start Date Expiration Date Visits Requested Visits Authorized [id number] Pending Review Specialty Services Required 08/05/2026 1 1 Reason for Visit * Reason Comments Follow-up Encounter Details Date Type Department Care Team (Late st Contact Info) Description 08/05/2025 9:00 AM EST Office Visit [facility] [address] [place] [address] Ana Lopez FNP [address] [place] [address] Abdominal discomfort (Primary Dx); Healthcare maintenance; Vertigo; Migraine without status migrainosus, not intractable, unspecified migraine type; Screening for colon cancer; Other hyperlipidemia; Prediabetes; Gastroesophageal reflux disease, unspecified whether esophagitis present Social History Tobacco Use Types Packs/Day Years Used Date Smoking Tobacco: Never Passive Smoke Exposure: Never Smokeless Tobacco: Never Alcohol Use Standard Drinks/Week Comments Never 0 (1 standard drink = 0.6 oz pur e alcohol) Depression Answer Date Recorded Patient Health Questionnaire-9 Score 0 08/05/2025 Patient Health Questionnaire-9 Score 0 08/05/2025 Last PHQ-9: Questionnaire Data Not on file 1 Housing Stability Answer Date Recorded What is [...] Date Recorded Patient Health Questionnaire-2 Score 0 08/05/2025 Internet Access Answer Date Recorded Internet Access Q1 Yes 05/27/2025 Internet Access Q2 Not on file 05/27/2025 Comments No Sex and Gender Information Value Date Recorded Sex Assigned at Female 06/05/2022 10:17 AM EDT Legal Sex Female 10:17 AM EDT Gender Identity Female 06/05/2022 10:17 AM EDT Sexual Orientation Straight 06/04/2025 2: 24 PM EDT documented as of this encounter Last Filed Vital Signs Vital Sign Reading Time Taken Comments Blood Pressure 110/64 08/05/2025 9:04 AM EST Pulse 62 08/05/2025 9:04 AM EST Temperature 36.2 C (97.2 F) 08/05/2025 9:04 AM EST Respiratory Rate 17 08/05/2025 9:04 AM EST Oxygen Saturation 98% 08/05/2025 9:04 AM EST Inhaled Oxygen Concentration - - Weight 62.2 kg (137 lb 3.2 oz) 08/05/2025 9:04 A M EST Height 147.3 cm (4' 10 ) 08/05/2025 9:04 AM EST Body Mass Index 28.67 08/05/2025 9:04 AM EST documented in this encounter Functional Status * SBIRT - Alcohol Question Answer Date of Assessment Author How many times in the past y ear have you had 5 or more (for men) or 4 or more (for women) drinks in a day? 0 08/05/2025 9:06 AM EST Tiff Gupta MA Score 0 08/05/2025 9:06 AM Tiff Roa MA * SBIRT - Drugs Question Answer Date of Assessment Author How many times in the past y ear have you used an illegal drug or used a prescription medication for non-medical reasons? 0 08/05/2025 9:06 AM Tiff Roa M A Score 0 08/05/2025 9:06 AM Tiff Roa MA * Over the past 2 weeks, how often have you been bothered by any of the following problems? Question Answer Date of Assessment Author Patient Health Questionnaire-2 Score 0 07/08 9:05 AM Tiff Roa MA * Little interest or pleasure in doing things Answer Date of Assessment Author Not at all 08/05/2025 9:05 AM Liliana Roa MA * Feeling down, depressed, or hopeless Answer Date of Assessment Author Not at all 08/05/2025 9:05 AM Liliana Roa MA * Trouble falling or staying asleep, or sleeping too much Answer Date of Assessment Author Not at all 08/05/2025 9:05 AM Liliana Roa MA * Feeling tired or having little energy Answer Date of Assessment Author Not at all 08/05/2025 9:05 AM Liliana Roa MA * Poor appetite or overeating Answer Date of Assessment Author Not at all 08/05/2025 9:05 AM Liliana Roa MA * Feeling bad about yourself - or that you are a failure or have let yourself or your family down Answer Date of Assessment Author Not at all 08/05/2025 9:05 AM Liliana Roa MA * Trouble concentrating on things, such as reading the newspaper or watching television Answer Date of Assessment Author Not at all 08/05/2025 9:05 AM EST Emilio, Liliana moon MA * Moving or speaking so slowly that other people could have noticed? Or the opposite - being so fidgety or restless that you have been moving around a lot more than usual. Answer Date of Assessment Author Not at all 08/05/2025 9:05 AM EST Liliana Jhaveri MA * Thoughts that you would be better off or hurting yourself in some way Answer Date of Assessment Author Not at all 08/05/2025 9:05 AM EST Emilio, Liliana moon MA * Patient Health Questionnaire-9 Score Answer Date of Assessment Author 0 08/05/2025 9:05 AM Liliana Roa MA documented as of this encounter Patient Instructions * Patient Instructions* REMI [place] - 08/05/2025 9:00 AM EST Ultrasonido de abdomen: Enero 2025 a las 9:30 AM Telefono: Direccion: [address] [place] [address], equipo radiologia documented in this encounter Progress Notes * REMI [place] - 08/05/2025 9:00 AM EST Subjective: Brandi Figueroa is a 70 y.o. female with a PMH of prediabetes, HLD, migraines, lumbar spondylosiswho presents to the office for a follow up visit. Interim History: Last PCP visit: 06/03/25 HPI: Abdominal discomfort: reports that overall has improved, has been drinking oregano tea at home which has helped. Reviewed appointment details for upcoming abdominal US. Snoring: reports that her snoring has also improved with the use of oregano tea, she would like to hold on pursuing the HST at this time. Acid reflux: intermittent symptoms of acid reflux, previously well controlled with omeprazole, med refill placed Migraines/CULVER: well controlled with topiramate nightly. Only 1-2/month, mild. Past Surgical History: Procedure Laterality Date TUBAL LIGATION Bilateral Family History Problem Relation Name Age of Onset Liver disease Mother Other (renal disease) Mother Cirrhosis Mother Lung cancer Father Social History Social History Narrative Social history: Living - living with , approx 50 years. Denies concern of IPV Employment - restaurant - manager gyn Substance Use - denies use of alcohol, tobacco, marijuana, opioids, or other substances Mental health - reports good overall, denies SI/HI/thoughts of self harm Allergies: NKDA Review of Systems Constitutional: Negative for chills and fever. Respiratory: Negative for cough. Cardiovascular: Negative for chest pain and palpitations. Gastrointestinal: Negative for vomiting. Intermittent acid reflux Psychiatric/Behavioral: Negative for suicidal ideas. Visit Vitals BP 110/64 (BP Location: Right arm, Patient Position: Sitting, BP Cuff Size: Adult) Pulse 62 Temp 97.2 ??F (36.2 ??C) (Oral) Resp 17 Ht 4' 10 (1.473 m) Wt 137 lb 3.2 oz (62.2 kg) SpO2 98% BMI 28.67 kg/m?? OB Status Postmenopausal Smoking Status Never BSA 1.6 m?? Physical Exam Constitutional: Appearance: Normal appearance. HENT: Head: Atraumatic. Right Ear: External ear normal. Left Ear: External ear normal. Cardiovascular: Rate and Rhythm: Normal rate and regular rhythm. Pulmonary: Effort: Pulmonary effort is normal. Breath sounds: Normal breath sounds. Neurological: Mental Status: She is alert and oriented to person, place, and time. Psychiatric: Mood and Affect: Mood normal. Behavior: Behavior normal. Problem List Items Addressed This Visit Cardiac and Vasculature Other hyperlipidemia Current Assessment & Plan -Continue with atorvastatin 20mg nightly -Repeat lipid panel ordered today Lab Results Component Value Date TRIG 124 06/02/2024 CHOL 155 06/02/2024 LDLCHOLCAL 86 06/02/2024 HDL 45 06/02/2024 Ear/Nose/Throat Vertigo Current Assessment & Plan -meclizine PRN Relevant Medications meclizine (Antivert) 12.5 MG tablet Endocrine and Metabolic Prediabetes Overview Lab Results Component Value Date HGBA1C 5.8 (A) 06/03/2025 -Well controlled -Cont lifestyle interventions -Metformin deprescribed 06/03/25 Current Assessment & Plan - Continues off medication - Check venous A1c Gastrointestinal and Abdominal Acid reflux Current Assessment & Plan - Omeprazole PRN Relevant Medications omeprazole OTC (PriLOSEC OTC) 20 MG EC tablet Health Encounters Healthcare maintenance Overview Pap/results: NILM HPV neg 02/16/21, final pap due on or after 65 y/o Mammogram: BIRADS 1 on 06/12/25 Colorectal Screening: stool card neg Jul 2021, referral to GI placed 04/30/24 (scheduled 09/04/24). Referral re-sent 08/05/25 Relevant Orders CBC auto differential Comprehensive Metabolic Panel TSH W/Reflex to FT4 Lipid Panel, Standard Hemoglobin A1c Neuro Migraine Current Assessment & Plan -Well controlled with current regimen -Continue topiramate 25mg daily for prevention -Established with [facility] Acupuncture clinic -Pt to follow up with Neurology as needed -ED precautions Relevant Medications topiramate (Topamax) 25 MG tablet Other Visit Diagnoses Abdominal discomfort - Primary - Improvement of symptoms - Upcoming abd US scheduled - appt details reviewed Screening for colon cancer Relevant Orders Referral to Gastroenterology Follow up: 6 months, sooner PRN Immunization History Administered Date(s) Administered Influenza High-dose Quadrivalent Preservative Free 05/19/2022, 05/30/2023 Influenza injectable quadrivalent IIV4 with preservative 07/29/2015, 06/19/2016, 04/26/2017 Influenza injectable quadrivalent preservative free 07/28/2019, 06/11/2020, 06/20/2021 Influenza, High Dose Seasonal, Preservative Free 04/30/2024, 06/03/2025 Influenza, IIV3, injectable 05/02/2011, 07/07/2014 Influenza, Split (incl. purified surface antigen) 11/08/2012, 06/13/2013 Moderna Covid-19 Vaccine 12+ 10/18/2020, 11/15/2020, 08/12/2021 Pneumococcal Conjugate PCV 20 05/30/2023 TD (adult), 2 Lf tetanus toxoid, preservative free, adsorbed 01/01/2003 Tdap 01/06/2013, 07/23/2024 Zoster, Recombinant 03/13/2020 documented in this encounter Miscellaneous Notes * Assessment & Plan Note - REMI Mansfield - 08/05/2025 9:34 AM ESTAssociated Problem(s): Acid reflux - Omeprazole PRN * Assessment & Plan Note - REMI Mansfield - 08/05/2025 9:33 AM ESTAssociated Problem(s): Migraine -Well controlled with current regimen -Continue topiramate 25mg daily for prevention -Established with [facility] Acupuncture clinic -Pt to follow up with Neurology as needed -ED precautions * Assessment & Plan Note - REMI Mansfield - 08/05/2025 9:31 AM ESTAssociated Problem(s): Prediabetes - Continues off medication - Check venous A1c * Assessment & Plan Note - REMI Mansfield - 08/05/2025 9:30 AM ESTAssociated Problem(s): Other hyperlipidemia -Continue with atorvastatin 20mg nightly -Repeat lipid panel ordered today Lab Results Component Value Date TRIG 124 06/02/2024 CHOL 155 06/02/2024 LDLCHOLCAL 86 06/02/2024 HDL 45 06/02/2024 * Assessment & Plan Note - REMI Mansfield - 08/05/2025 9:30 AM ESTAssociated Problem(s): Vertigo -meclizine PRN documented in this encounter Plan of Treatment Scheduled Orders Name Type Priority Associated Diagnoses Orde r Schedule CBC auto differential Lab Routine Healthcare maintenance Expected: 08/05/2025 (Approximate), Expires: 08/05/2026 Comprehensive Metabolic Panel Lab Routine Healthcare maintenance Expected: 08/05/2025 (Approximate), Expires: 08/05/2026 TSH W/Reflex to FT4 Lab Routine Healthcare maintenance Expected: 08/05/2025 (Approximate), Expires: 08/05/2026 Lipid Panel, Standard Lab Routine Healthcare maintenance Expected: 08/05/2025 (Approximate), Expires: 08/05/2026 Hemoglobin A1c Lab Routine Healthcare maintenance Expected: 08/05/2025 (Approximate), Expires: 08/05/2026 Scheduled Referrals Name Type Priority Associated Diagnoses Order Schedule Referral to Gastroenterology Outpatient Referral Routine Screening for colon cancer Expected: 08/05/2025 (Approximate), Expires: 08/05/2026 documented as of this encounter Visit Diagnoses Diagnosis Abdominal discomfort- Primary Abdominal pain, unspecified site Healthcare maintenance Vertigo Dizziness and giddiness Migraine without status migrainosus, not intractable, unspecified migraine type Screening for colon cancer Special screening for malignant neoplasms, colon Other hyperlipidemia Prediabetes Other abnormal glucose Gastroesophageal reflux disease, unspecified whether esophagitis present documented in this encounter Additional Health Concerns Assessment Noted Time PHQ-9 Depression Total Score: 0 08/05/20 25 9:05 AM EST documented as of this encounter Care Teams Chrome Worker Relationship Specialty Start Date End Date Ana Lopez FNP [address] [place] [id number] PCP - General Family Medicine 03/31/22 documented as of this encounter
--- OUTSIDE RECORDS SUMMARY | 2025-08-05 09:49 | XMS_ITS | Clinical Summary ---
Author Organization [employer] Address [address] [facility] 7[address] [place] [address] Care Team Providers Care Procurement Manager Name Role Phone Ana Lopez REMI Primary Care Provider [phone] Allergies No known active allergies Medications SM Dry Eye Relief 0.2-0.2-1 % solution INSTILL DROPS IN EACH EYE NEEDED FOR DRY INTO THE AFFECTED EYE(S) Active lidocaine (Lidoderm) 5 % patch Place 1 patch on the skin at bed time. Active simethicone (Mylicon) 80 MG chewable tablet Chew 1 tablet in the morning and 1 tablet at noon and 1 tablet in the evening and 1 tablet before bedtime. 022 Active Acetaminophen 500 MG capsuleIndications :Acute nasopharyngitis Take one to two tablets as needed for fever or pain every 6 hours 30 capsule 023 Active Diclofenac Sodium (Voltaren) 1 % gelIndications:Laura clarke osteoarthritis of left knee Use by topical route - apply thin layer over lower extremities as needed for inflammation of the veins. Use 2-3 times per day. 100 g 2 023 Active estradiol (Estrace) 0.1 MG/GM vaginal cream 1g vaginally twice weekly 45 g 1 024 Active Blood Pressure kitIndications:Heather gabriela blood pressure reading Use to check blood pressure at home. 1 kit Active hydrocortisone 1 % creamIndications:R spring Apply topically 2 times daily. Use for 1-2 weeks (affected area: right cheek) 15 g 1 024 Active alendronate (Fosamax) 70 MG tabletIndications: Other osteoporosis without current pathological fracture Take 1 tablet (70 mg) by mouth 1 (one) time per week. Take in the morning with a full glass of water, on an empty stomach, and do not take anything else by mouth or lie down for the next 30 min. 12 tablet 3 07/01/20 25 11:29 AM EST 024 2025 Active atorvastatin (Lipitor) 20 MG tabletIndications: Other hyperlipidemia TAKE 1 TABLET BY MOUTH EVERY EVENING BEFORE BEDTIME 90 tablet 1 07/01/20 25 11:29 AM EST 025 Active D3 Super Strength 50 MCG (1999) capsuleIndications :Vitamin D deficiency TAKE 1 CAPSULE BY MOUTH EVERY DAY 90 capsule 3 025 Active meclizine (Antivert) 12.5 MG tabletIndications: Vertigo TAKE 1 TABLET BY MOUTH THREE TIMES DAILY IN THE MORNING, AT NOON, AND AT BEDTIME FOR DIZZINESS 90 tablet 3 Active topiramate (Topamax) 25 MG tabletIndications: Migraine without status migrainosus, not intractable, unspecified migraine type TAKE 1 TABLET BY MOUTH EVERY DAY FOR HEADACHE 90 tablet 3 Active omeprazole OTC (PriLOSEC OTC) 20 MG EC tablet Take 1 tablet (20 mg) by mouth before breakfast. 90 tablet 2 025 Active omeprazole OTC (PriLOSEC OTC) 20 MG EC tablet Take 1 tablet by mouth. 022 2024 Discontinued(R eorder (will not trigger notification to Pharmacy)) calcium carbonate (Calcium 600) 600 MG tabletIndications: Other osteoporosis without current pathological fracture Take 1 tablet (600 mg) by mouth Once per day. 90 tablet 3 024 2024 topiramate (Topamax) 25 MG tabletIndications: Migraine without status migrainosus, not intractable, unspecified migraine type TAKE 1 TABLET BY MOUTH EVERY DAY FOR HEADACHE 90 tablet 3 025 2024 Discontinued(R eorder (will not trigger notification to Pharmacy)) meclizine (Antivert) 12.5 MG tabletIndications: Vertigo TAKE 1 TABLET BY MOUTH THREE TIMES DAILY IN THE MORNING, AT NOON, AND AT BEDTIME FOR DIZZINESS 30 tablet 3 025 2024 Discontinued(R eorder (will not trigger notification to Pharmacy)) Active Problems Problem Noted Date Diagnosed Date Acid reflux 08/05/2025 Assessment & Plan (08/05/2025 9:34 AM EST): - Omeprazole PRN Other osteoporosis without current pathological fracture 07/23/2024 [...] 2-3x/week. Non smoker Healthcare maintenance 03/19/2023 Overview (08/05/2025): Pap/results: NILM HPV neg 02/16/21, final pap due on or after 65 y/o Mammogram: BIRADS 1 on 06/12/25 Colorectal Screening: stool card neg Jul 2021, referral to GI placed 04/30/24 (scheduled 09/04/24). Referral re-sent 08/05/25 Assessment & Plan (05/15/2024 12:40 PM EDT): [...] Xarelto 10mg daily and referred to Vascular [facility] consult Apr 2023 - right great saphenous vein radiofrequency ablation. Encouraged continued conservative measures including compression, leg elevation, and exercise. Assessment & Plan (11/10/2022 7:15 PM EDT): -Original referral location does not accept pt insurance, called [facility], planning to review case -Referral JOÃO [...] risk factors for VTE. For prophylaxis, fondaparinux, brv-zjiyhtjqw-liyger heparin, unfractionated heparin, direct oral anticoagulants, and [...] PM EST): -Reschedule eval with audiology -Call [facility] with any difficulties or if in need of a new referral Vertigo 08/14/2022 Assessment & Plan (08/05/2025 9:30 AM EST): -meclizine PRN Assessment & Plan (08/14/2022 10:03 AM EST): -meclizine PRN Other hyperlipidemia 08/13/2022 Assessment & Plan (08/05/2025 9:30 AM EST): -Continue with atorvastatin 20mg nightly -Repeat lipid panel ordered today Lab Results Component Value Date TRIG 124 06/02/2024 CHOL 155 06/02/2024 LDLCHOLCAL 86 06/02/2024 HDL 45 06/02/2024 Assessment & Plan (06/21/2023 7:28 PM EST): [...] interventions -Metformin deprescribed 06/03/25 Assessment & Plan (08/05/2025 9:31 AM EST): - Continues off medication - Check venous A1c Assessment & Plan (06/03/2025 5:01 PM EDT): [...] Constipation 07/29/2015 Migraine 07/29/2015 Assessment & Plan (08/05/2025 9:33 AM EST): -Well controlled with current regimen -Continue topiramate 25mg daily for prevention -Established with [facility] Acupuncture clinic -Pt to follow up with Neurology as needed -ED precautions Assessment & Plan (05/15/2024 12:40 PM EDT): -Pt reports improvement in severity of head pain w/ re-start of topiramate, but continues with daily symptoms. Does not desire changes in med or med dose at this time. -Continue topiramate 25mg daily for prevention -Established with [facility] Acupuncture clinic -Pt to follow up with Neurology as needed -Head CT ordered for further eval -ED precautions Assessment & Plan (05/01/2024 9:55 PM EDT): -Pt reports well controlled with current regimen -Continue topiramate 25mg daily for prevention -Reviewed med safety and side effects -Established with [facility] Acupuncture clinic -Pt to follow up with Neurology as needed Assessment & Plan (06/21/2023 7:27 PM EST): -Pt reports well controlled with current regimen -Continue topiramate 25mg daily for prevention -Reviewed med safety and side effects -Established with [facility] Acupuncture clinic -Pt to follow up with Neurology as needed Assessment & Plan (08/21/2022 12:50 PM EST): -Pt reports well controlled with current regimen -Continue topiramate 25mg daily for prevention -Reviewed med safety and side effects -Established with [facility] Acupuncture clinic -Pt to follow up with Neurology as needed Nonulcer dyspepsia 07/29/2015 Assessment & Plan (08/13/2022 7:44 PM EST): -Continue with omeprazole PRN Encounters Date Type Department Care Team Description 08/05/2025 9:00 AM EST Office Visit [address] [address] Ana Lopez FNP Abdominal discomfort (Primary Dx); Healthcare maintenance; Vertigo; Migraine without status migrainosus, not intractable, unspecified migraine type; Screening for colon cancer; Other hyperlipidemia; Prediabetes; Gastroesophageal reflux disease, unspecified whether esophagitis present 08/05/2025 Travel 08/03/[address] [address] Ana Lopez FNP chart prep 07/01/[address] [address] Ana Lopez FNP Migraine without status migrainosus, not intractable, unspecified migraine type; Vitamin D deficiency; Vertigo 06/23/2025 Telephone [facility] [address] [place], [place] [phone] Ana Lopez FNP 06/12/2025 Orders Only [facility] [address] [place] [address] Dio Jara CNM 06/03/2025 10:00 AM EDT Office Visit [facility] [address] [place] [address] Ana Lopez FNP Other osteoporosis without current pathological fracture (Primary Dx); Prediabetes; Healthcare maintenance; Encounter for immunization; Abdominal discomfort; Family history of cirrhosis of liver; Loud snoring; Witnessed episode of apnea; Dietary counseling; Exercise counseling 06/03/2025 Travel 06/01/2025 Telephone [facility] [address] [place], [place] [phone] Ana Lopez FNP fyi 05/27/2025 Patient Outreach [facility] [address] [place], [place] [phone] Ana Lopez FNP Pre-visit Planning (SDOH negative. [...] Orientation Straight 06/04/2025 2: 24 PM EDT Last Filed Vital Signs Vital [...] Mass Index 28.67 08/05/2025 9:04 AM EST Plan of Treatment Health Maintenance Due Date Last Done Comments CT Colonography 1955 Colonoscopy 1955 Colorectal Cancer Screening 1955 FIT DNA/Cologuard 1957 FIT 1957 FOBT 1955 Sigmoidoscopy 1955 Zoster Vaccines (2 of 2) 05/08/2020 03/13/2020 SDOH Screening 05/27/2026 05/27/2025 Diabetes: Hemoglobin A1C 06/03/2026 025, 06/02/2024, 05/30/2023, Additional history exists Mammogram 06/12/2026 06/12/2025, 05/07, 03/14/2019, Additional history exists Alcohol/Substance Use Screening 08/05/2026 08/05/2025 COVID-19 Vaccine ( season) 2026 08/12/2021, 11/15/2020, 10/18/2020 Postponed from 04/06/2025 (Patient Refused) Depression Screening 08/05/2026 08/05/2025, 08/05/20 Tobacco Screening 08/05/2026 08/05/2025 RSV Patients and Patients Aged 60 years or older (1 - 1-dose 75+ series) 2032 DTaP/Tdap/Td Vaccines (3 - Td or Tdap) [...] Procedure Name Priority Date/Time Associated Diagnosis Comments BI MAMMOGRAM SCREENING TOMOSYNTHESIS BILATERAL Routine 06/12/2025 12:35 PM EST POCT GLYCATED HEMOGLOBIN, TOTAL Routine 06/03/2025 10:35 AM EDT Prediabetes POCT GLUCOSE (CPT-73236) Routine 06/03/2025 10:32 AM EDT Prediabetes HEPATITIS C VIRAL RNA, QUANTITATIVE, REAL-TIME PCR Routine 06/02/2024 9:32 AM EDT Healthcare maintenance HPV GENOTYPES 16,18/45 Routine 3:29 AM EDT THINPREP PAP Routine 02/22/2021 3:29 AM EDT from Last 3 Months or Most Recently Relevant to Health Maintenance Results * BI Mammogram Screening Tomosynthesis Bilateral (06/12/2025 12:35 PM EST) Anatomical Region Laterality Modality Breast Bilateral Mammography 06/12/2025 12:3 5 PM EST Narrative 06/16/2025 5:37 PM EST [address] [place] [address] Mammography Report Signed Patient: Brandi Figueroa MR#: [id number] : 1955 Acct:[id number] Age/Sex: 70 / F ADM Date: 06/12/25 Loc: HO.MAMMO Attending Dr: Dio Jara CNM Ordering Physician: DIO JARA CNM Results: 1 Negative Date of Service: 06/12/25 Follow Up: 1 Year From Orig inal Mammogram Procedure(s): MM tomosynthesis screening BI Accession Number(s): [id number] cc: Ana Lopez; DIO JARA CNM Reason For Exam: SCREENING EXAMINATION: MM SCREENING DIGITAL BREAST TOMOSYNTHESIS, BILATERAL CLINICAL INFORMATION: Screening. Asymptomatic. COMPARISON: Mammography: Comparison is made with available priors TECHNIQUE: Digital breast mammography with tomosynthesis is performed in both the craniocaudal and mediolateral oblique views along with computer-aided detection (CAD). FINDINGS: The breasts are heterogeneously dense, which may obscure small masses. There are no significant masses, abnormal calcifications, or other abnormalities. MM/MM tomosynthesis screening BI IMPRESSION: No mammographic evidence of malignancy. ASSESSMENT: BI-RADS Category 1: Negative RECOMMENDATION: Routine annual mammography screening. 1 year F/U This examination should not preclude the clinical evaluation of a suspicious palpable abnormality. This patient's information was entered into a reminder system with a target due date for their next mammogram. Electronically signed by: Alexus Haddad DO 06/16/2025 05:34 PM EST Dictated By: Alexus Haddad DO Signed By: <Electronically signed by Alexus Haddad DO in OV> 06/16/25 1734 DD/ 1235 TD/TT: 06/12/25 1252 Data Conversion Developer: Procedure Note Donotuseinterpreter, Image - 06/16/[address] [place] [address] Mammography Report Signed Patient: Brandi FigueroaMR#: [id number] : 1955cct:[id number] Age/Sex: 70 / FADM Date: 06/12/25 Loc: HO.MAMMO Attending Dr: Dio Jara CNM Ordering Physician: DIO JARAesults: 1 Negative Date of Service: 06/12/25Follow Up: 1 Year From Orig inal Mammogram Procedure(s): MM tomosynthesis screening BI Accession Number(s): [id number] cc: Ana Lopez PARTNER [facility]; DIO JARA CNM Reason For Exam: SCREENING EXAMINATION: MM SCREENING DIGITAL BREAST TOMOSYNTHESIS, BILATERAL CLINICAL INFORMATION: Screening. Asymptomatic. COMPARISON: Mammography: Comparison is made with available priors TECHNIQUE: Digital breast mammography with tomosynthesis is performed in both the craniocaudal and mediolateral oblique views along with computer-aided detection (CAD). FINDINGS: The breasts are heterogeneously dense, which may obscure small masses. There are no significant masses, abnormal calcifications, or other abnormalities. MM/MM tomosynthesis screening BI IMPRESSION: No mammographic evidence of malignancy. ASSESSMENT: BI-RADS Category 1: Negative RECOMMENDATION: Routine annual mammography screening. 1 year F/U This examination should not preclude the clinical evaluation of a suspicious palpable abnormality. This patient's information was entered into a reminder system with a target due date for their next mammogram. Electronically signed by: Alexus Haddad DO 06/16/2025 05:34 PM [facility] Dictated By: Alexus Haddad DO Signed By: <Electronically signed by Alexus Haddad DO in OV> 06/16/25 1734 DD/ 1235 TD/TT: 06/12/25 1252 Data Conversion Developer: Dio Jara CNM IMG BI PROCEDURES Final R esult * (ABNORMAL) POCT Hgb A1c (06/03/2025 10:35 AM EDT) Hemoglobin A1C 5.8(A) 4.0 - 5.7 % QC Media Lot # [id number] Lot# Expiration Date Blood 06/03/2025 10:3 5 AM EDT us Ana PRETTYP POINT OF CARE TEST ENTER/EDIT ORDERABLES Final Result * POCT Glucose (06/03/2025 10:32 AM EDT) [facility] Glucose Blood, POC 100 60 - 200 mg/dL QC Media Lot # [id number] Lot# Expiration Date Blood Capillary blood specimen / Unknown 06/03/2025 10:32 AM EDT Ana Lopez PARTNER [facility]CO POINT OF CARE TEST ENTER/EDIT ORDERABLES Final Result * Hepatitis C Viral RNA, Quantitative, Real-Time PCR (06/02/2024 9:32 AM EDT) [facility] Hepatitis C Viral Load <15 NOT DETECTED NOT DETECTED IU/mL [facility] HCV Log PCR <1.18 NOT DETECTED NOT DETECTED Log IU/mL [facility] Comment:For additional infor matmigue, please refer [email or web address]/[email or web address](This link is being provided for informational/educational purposes only.)THIS TEST WAS PERFORMED AT:[facility] [place] [id number] OLSON MD Blood 06/02/2024 9:32 AM EDT 06/02/2024 11:05 AM EDT us Ana Lopez PARTNER [facility] LAB BLOOD ORDERABLES Final Res ult [facility] [address] [place] [address] [phone] * THINPREP PAP (02/22/2021 3:29 AM EDT) [facility] Clinical Information: None given [facility] COMMENT SEE COMMENT [facility] [...] along with historic and current clinical information. Laborer Tanbark : SEE COMMENT [facility] Comment: KN, CT(ASCP) CT screening location: [place] [address] Interpretation/R esult: Negative for intraepithelial lesion or malignancy. [facility] LMP: NONE GIVEN [facility] Prev. BX: NONE GIVEN [facility] Prev. PAP: NONE GIVEN [facility] Review Laborer Tanbark : SEE COMMENT [facility] Comment: MAA, CT(ASCP) CT screening location: [place] [address] SOURCE: None given [facility] Statement Of Adequacy: SEE COMMENT [facility] Comment: Satisfactory for evaluation. Endocervical/transformation zone component present. 02/22/2021 3:29 AM EDT us Lorena Parikh NP LAB PATHOLOGY ORDERABLES Final Result Performing Organization Address [facility] Phone Number [facility] [address] [place] [address] * HPV GENOTYPES 16,18/45 (02/22/2021 3:29 AM EDT) HPV 16 RNA NOT DETECTED NOT DETECTED [facility] HPV 18/45 RNA NOT DETECTED NOT DETECTED [facility] Comment: Methodology: Repair Cameraman Mediated Amplification The analytical performance characteristics of this assay have been determined by [employer]. The modifications have not been cleared or approved by the FDA. This assay has been validated pursuant to the CLIA regulations and is used for clinical purposes. 02/22/2021 3:29 AM EDT us Lorena Parikh NP LAB CYTOLOGY ORDERABLES Final R esult Performing Organization Address [facility] Co de Phone Number [facility] [address] from Last 3 Months or Most Recently Relevant to Health Maintenance Insurance [facility] DUAL COMPLETE HMO Care Teams Procurement Manager Relationship Specialty Start Date End Date Ana Lopez FNP [address] [place] [address] PCP - General Family Medicine 03/31/22
--- OUTSIDE RECORDS SUMMARY | 2025-08-05 09:49 | XMS_ITS | Clinical Summary ---
Author Organization [facility] Address [address] [address] Phone Care Team Providers Care Residential Carpet Installer Name Role Phone Ben Javier, LENY, Tasneem [...] topic Medical Devices Not on file Insurance [employer]ur[employer] DIRECT Harvest Trends DIRECT [employer]ur[employer] DIRECT DIRECT DIRECT DIRECT PLANS DIRECT PLANS DIRECT PLANS DIRECT Care Teams Residential Carpet Installer Relationship Specialty Start Date End Date Tasneem Contreras NP PCP - General 01/21/19 Additional Source Comments The information contained in this document represents components of the legal health record. It is not the complete legal health record.[facility]
--- OUTSIDE RECORDS SUMMARY | 2025-08-05 09:49 | XMS_ITS | Encounter Summary ---
Author Organization [employer] Address [address] [place] [address] Care Team Providers Care Signal Integrity Engineer Name Role Phone Ana Lopez Primary Care Provider [phone] Reason for Visit * Reason Onset Date Comments chart prep 08/03/2025 Encounter Details Date Type Department Care Team (Late st Contact Info) Description 08/03/2025 Telephone [facility] [address] [place] [address] Ana Lopez FNP [address] [place] [address] chart prep Social History Tobacco Use Types Packs/Day Years [...] PM EDT documented as of this encounter Miscellaneous Notes * Telephone Encounter - Steve Geller [place] - 08/03/2025 2:04 PM EST Chart Prep Labs: not done Images: done Referrals: appointment pending Radiology appointment US abdomen appointment 08/28/2025 @ 9:30 AM Vaccines due: Covid and Zoster Screenings: colonoscopy Overdue care gaps: SBIRT, PHQ-9, MARYANNE-7, and Disability screen documented in this encounter Plan of Treatment Not on file documented as of this encounter Visit Diagnoses Not on filedocumented in this encounter Additional Health Concerns Assessment Noted Time PHQ-9 Depression Total Score: 0 07/23/20 24 10:54 AM EST documented as of this encounter Care Teams Signal Integrity Engineer Relationship Specialty Start Date End Date Ana Lopez FNP [address] [place] [id number] PCP - General Family Medicine 03/31/22 documented as of this encounter
--- OUTSIDE RECORDS SUMMARY | 2025-08-05 09:49 | XMS_ITS | Encounter Summary ---
Author Organization [employer] Address [address] [place] [address] Care Team Providers Care Fence Making Machine Operator Name Role Phone Ana Lopez Primary Care Provider Encounter Details Date Type Department Care Team (Late st Contact Info) Description 08/03/2022 Telephone [facility] [address] [place] [address] Ana Lopez FNP [address], [place] [phone] Social History Tobacco Use Types Packs/Day Years [...] as of this encounter Plan of Treatment Not on file documented as of this encounter Visit Diagnoses Not on filedocumented in this encounter Care Teams Fence Making Machine Operator Relationship Specialty Start Date End Date Ana Lopez FNP [address] [place] [address] PCP - General Family Medicine 03/31/22 documented as of this encounter
--- OUTSIDE RECORDS SUMMARY | 2025-08-05 09:49 | XMS_ITS | Encounter Summary ---
Author Organization [employer] Address [address] [place] [address] Care Team Providers Care Fur Dresser Name Role Phone Ana Lopez DOUBLE END SEWER Primary Care Provider [phone] Encounter Details Date Type Department Care Team (Latest Contact Info) Description 08/05/2025 Travel Social History Tobacco Use Types Packs/Day Years [...] PM EDT documented as of this encounter Plan of Treatment Not on file documented as of this encounter Visit Diagnoses Not on filedocumented in this encounter Additional Health Concerns Assessment Noted Time PHQ-9 Depression Total Score: 0 08/05/20 25 9:05 AM EST documented as of this encounter Care Teams Fur Dresser Relationship Specialty Start Date End Date Ana Lopez FNP [address] [place] [id number] PCP - General Family Medicine 03/31/22 documented as of this encounter
[2025-08-05 11:32] LABS: MANUAL DIFF FLAG NO
[2025-08-05 11:43] LABS: Hematocrit 38.0 % (37.0-47.0); Hemoglobin 12.1 g/dl (12.0-16.0); Imm Gran Abs Auto 0.03 X10*3/uL (0.00-0.03); Imm Gran Pct Auto 0.6 % (0.0-0.4); Lymphocytes Absolute Auto 1.8 X10*3/uL (1.2-4.9); Mean Corpuscular HGB Conc 31.8 g/dl (31.0-35.0); Mean Corpuscular Hemoglobin 26.4 pg (27.0-33.0); Mean Corpuscular Volume 82.8 fL (80.0-98.0); NRBC Abs Auto 0.000 X10*3/uL (0.0-0.012); NRBC Pct Auto 0.0 /100WBC (0.0-0.2); Platelet Count 240 X10*3/uL (160-400); Red Blood Count 4.59 X10*6/uL (4.20-5.50); White Blood Count 5.3 X10*3/uL (4.8-10.8)
[2025-08-05 12:20] LABS: Alanine Aminotransferase 18 U/L (0-31); Albumin Level 4.4 g/dL (3.5-5.0); Alkaline Phosphatase 73 U/L (39-117); Anion Gap 12 (12-20); Aspartate Amino Transferase 27 U/L (5-31); Blood Urea Nitrogen 20 mg/dL (9-16); Calcium 8.8 mg/dL (8.4-10.2); Carbon Dioxide 24 mmol/L (22-29); Chloride 109 mmol/L (96-108); Cholesterol 143 mg/dL (<200); Estimated Glomerular Filt Rate > 60; HDL Cholesterol 45 mg/dL (>40); Potassium 4.0 mmol/L (3.3-5.1); Sodium 141 mmol/L (135-145); Total Protein 7.3 g/dL (6.5-8.0); Triglycerides 61 mg/dL (<150)
== END 2025-08-05 09:30 | disposition home or self-care (01) ==
LOC: HO.HHCL 09:29
PROVIDERS: PCP Registered Nurse; Visit Provider Registered Nurse
DX: Z00.00 Encounter for general adult medical examination without abnormal findings (principal); Z13.6 Encounter for screening for cardiovascular disorders; Z13.1 Encounter for screening for diabetes mellitus; Z13.29 Encounter for screening for other suspected endocrine disorder; Z13.0 Encounter for screening for diseases of the blood and blood-forming organs and certain disorders involving the immune mechanism
CPT/HCPCS: 36415; 80053; 80061; 83036; 84443; 85025